=== PATIENT | male | born 1950 | race Caucasian/White ===

== ENCOUNTER 2020-03-28 10:17 | Inpatient (IN) | payer MEDICARE, MEDICAID ==
[~2020-03-28] VITALS: Ht 182.9 cm; Wt 85.5 kg
[2020-03-28] MEDS ORDERED: ONDANSETRON HCL 4 MG/2 ML VIAL IV ONE (10:30)
[2020-03-28] MEDS ORDERED: ASPirin 81 mg TAB PO ONE (10:30)
[2020-03-28] MEDS ORDERED: MORPHINE SULF INJ 2 MG/ML SYRINGE 1ML IV ONE (10:30)
[2020-03-28 11:23] LABS: Basophils # (auto) 0 10 ^3/uL (0-0.2); Basophils % (auto) 0.5 % (0.0-2.0); Eosinophils # (auto) 0.1 10 ^3/uL (0-0.8); Eosinophils % (auto) 2.1 % (0.0-7.0); Hematocrit 37.2 % (41.0-53.0); Hemoglobin 12.7 g/dL (13.5-17.5); Lymphocytes % (auto) 17.5 % (10.0-50.0); Mean Corpuscular Hemoglobin 28.3 pg (28.0-32.0); Mean Corpuscular Hgb Conc. 34.1 g/dL (32.0-36.0); Mean Corpuscular Volume 83.1 fL (80.0-100.0); Monocytes # (auto) 0.3 10 ^3/uL (0-1.3); Monocytes % (auto) 5.7 % (0.0-12.0); Neutrophils # (auto) 4.4 10 ^3/uL (1.6-8.6); Neutrophils % (auto) 74.2 % (37.0-80.0); Platelet Count (auto) 183 10^3/uL (140-450); Red Blood Cells 4.48 10^6/uL (4.5-5.90); Red Cell Distribution Width 15.5 % (11.8-14.3); White Blood Cell 5.9 10^3/uL (4.4-10.8)
[2020-03-28 11:46] LABS: Albumin 3.5 g/dL (3.4-5.0); Anion Gap 7 (5-15); BUN/Creatinine Ratio 18.8; Blood Urea Nitrogen 12 mg/dL (7-18); Calcium 8.8 mg/dL (8.5-10.1); Carbon Dioxide 28 mmol/L (21-32); Chloride 101 mmol/L (98-107); GFR African American 160 mL/min; GFR Non-African American 133 mL/min; Glucose 214 mg/dL (74-106); Magnesium 2.5 mg/dL (1.6-2.6); Sodium 136 mmol/L (136-145)
[2020-03-28 11:47] LABS: INR 1.03 (0.9-1.15); Partial Thromboplastin Time 29.6 sec (23.64-32.05)
[2020-03-28 11:51] LABS: Alanine Aminotransferase 24 U/L (16-61); Alkaline Phosphatase 120 U/L (45-117); Aspartate Aminotransferase 18 U/L (15-37); Bilirubin, Total 1.2 mg/dL (0.2-1.0); Total Protein 8.1 g/dL (6.4-8.2)
[2020-03-28] MEDS ORDERED: DEXTROSE (50%) 50ML SYRG IV PRN (14:00)
[2020-03-28] MEDS ORDERED: ONDANSETRON HCL 4 MG/2 ML VIAL IV PRN (14:00)
[2020-03-28] MEDS ORDERED: HYDROcodone-ACET 5/325MG TAB PO PRN (14:00)
[2020-03-28] MEDS ORDERED: hydrALAZINE HCL 20 MG/ML VL IV PRN (14:00)
[2020-03-28] MEDS ORDERED: NICOTINE 21MG/24 HR TOPICAL PATCH TD ONE (14:00)
[2020-03-28] MEDS ORDERED: NITROGLYCERIN 0.4 MG SL TAB SL PRN (14:00)
[2020-03-28] MEDS ORDERED: ACETAMINOPHEN 500 MG TAB PO PRN (14:00)
[2020-03-28] MEDS ORDERED: LISINOPRIL 10 MG TAB PO ONE (14:15)
[2020-03-28] MEDS ORDERED: CLOPIDOGREL BISULFATE 75 MG TAB PO ONE (16:30)
[2020-03-28] MEDS ORDERED: RANOLAZINE ER 500 MG TAB PO ONE (16:30)
[2020-03-28] MEDS: MORPHINE SULF INJ 2 MG/ML SYRINGE 1ML IV PRN ×2 (16:30→21:20)
[2020-03-28] MEDS: ACCU-CHEK COMFORT CURVE STRIP VI SCH ×2 (17:06→22:47)
[2020-03-28] MEDS: InsuLIN REG 1unit/0.01ml Soln (100units/ml) SC SCH ×2 (17:10→22:47)
--- NOTE | 2020-03-28 18:13 | NUR ---
Pt Arrived on Unit Pt arrived on unit from ED. Pt is a/ox4 with no s/s of distress or SOB. Pt was able to ambulate to bed with standby assistance. Safety measures initiated with call light within reach, bed in lowest position and side rails up. Will continue to monitor.
[2020-03-28 18:40] VITALS: BP 146/74
[2020-03-28] MEDS ORDERED: FURO1TAB33 PO (18:45)
[2020-03-28] MEDS ORDERED: ATOR40TA52 PO (18:45)
[2020-03-28] MEDS ORDERED: AMLO5TAB15 PO (18:45)
[2020-03-28] MEDS ORDERED: CLOP75TA41 PO (18:45)
--- NOTE | 2020-03-28 19:20 | NUR ---
Opening Shift Note Assumed care of patient, awake and alert. No S/S of distress/SOB or pain. Bed is locked to lowest position with call light within reach. Instructed on POC and to call for assist PRN, will continue to monitor for changes Q1hr and PRN.
[2020-03-28 21:00] VITALS: BP 134/61
--- NOTE | 2020-03-28 21:20 | NUR ---
PAIN ASSESSMENT The patient reports consistent 8/10 chest pain and requested pain medication. Will treat with PRN Morphine and will reevaluate the patient's pain.
--- NOTE | 2020-03-28 22:45 | NUR ---
PAIN REASSESSMENT The patient reports having 0/10 chest pain and is resting comfortably in bed. Will continue to monitor the patient's pain.
[2020-03-28] MEDS: RANOLAZINE ER 500 MG TAB PO SCH (22:47)
[2020-03-28] MEDS: ATORVASTATIN 20 MG TAB PO SCH (22:47)
[2020-03-28] MEDS: CARVEDILOL 3.125 MG TAB PO SCH (22:47)
[2020-03-29 04:30] VITALS: BP 121/59
--- NOTE | 2020-03-29 05:49 | NUR ---
MEDICAL RECORDS REQUEST HAS BEEN FAXED TO [facility].
[2020-03-29] MEDS: InsuLIN REG 1unit/0.01ml Soln (100units/ml) SC SCH ×4 (06:01→22:00)
[2020-03-29 06:04] LABS: Basophils # (auto) 0 10 ^3/uL (0-0.2); Basophils % (auto) 0.5 % (0.0-2.0); Eosinophils # (auto) 0.2 10 ^3/uL (0-0.8); Eosinophils % (auto) 3.3 % (0.0-7.0); Hematocrit 33.2 % (41.0-53.0); Hemoglobin 11.4 g/dL (13.5-17.5); Lymphocytes # (auto) 1.2 10 ^3/uL (0.4-5.4); Lymphocytes % (auto) 24.1 % (10.0-50.0); Mean Corpuscular Hemoglobin 28.8 pg (28.0-32.0); Mean Corpuscular Hgb Conc. 34.5 g/dL (32.0-36.0); Mean Corpuscular Volume 83.6 fL (80.0-100.0); Monocytes # (auto) 0.4 10 ^3/uL (0-1.3); Monocytes % (auto) 8.8 % (0.0-12.0); Neutrophils # (auto) 3.1 10 ^3/uL (1.6-8.6); Neutrophils % (auto) 63.3 % (37.0-80.0); Platelet Count (auto) 160 10^3/uL (140-450); Red Blood Cells 3.97 10^6/uL (4.5-5.90); Red Cell Distribution Width 15.1 % (11.8-14.3); White Blood Cell 4.8 10^3/uL (4.4-10.8)
[2020-03-29 06:13] LABS: INR 1.07 (0.9-1.15); Partial Thromboplastin Time 28.9 sec (23.64-32.05)
[2020-03-29 06:23] LABS: Potassium 3.6 mmol/L (3.5-5.1)
[2020-03-29 06:31] LABS: BUN/Creatinine Ratio 28.8; Calcium 8.5 mg/dL (8.5-10.1)
[2020-03-29] MEDS: ACCU-CHEK COMFORT CURVE STRIP VI SCH ×4 (06:31→22:00)
--- NOTE | 2020-03-29 07:26 | NUR ---
Opening Shift Note Assumed care of patient, awake and alert. No S/S of distress/SOB. Patient verbalizes generalized pain and describes it as chronic and 05/23, patient is requesting PRN medication. Will administer as per order. Bed is locked to lowest position with call light within reach. Instructed on POC and to call for assist PRN, will continue to monitor for changes Q1hr and PRN.
[2020-03-29] MEDS: MORPHINE SULF INJ 2 MG/ML SYRINGE 1ML IV PRN ×4 (08:20→20:56)
[2020-03-29] MEDS: NICOTINE 21MG/24 HR TOPICAL PATCH TD SCH (08:58)
[2020-03-29] MEDS: CARVEDILOL 3.125 MG TAB PO SCH ×2 (08:59→22:00)
[2020-03-29] MEDS: LISINOPRIL 10 MG TAB PO SCH (08:59)
[2020-03-29] MEDS: FUROSEMIDE 20 MG TAB PO SCH (09:00)
[2020-03-29] MEDS: CLOPIDOGREL BISULFATE 75 MG TAB PO SCH (09:00)
[2020-03-29] MEDS: RANOLAZINE ER 500 MG TAB PO SCH ×2 (09:00→22:00)
[2020-03-29] MEDS: ASPirin-EC 81 mg tab PO SCH (09:01)
[2020-03-29] MEDS: FAMOTIDINE 20 MG TAB PO SCH (09:04)
[2020-03-29 09:11] VITALS: BP 136/70
[2020-03-29] MEDS ORDERED: NITROGLYCERIN 0.4MG/HR TOPICAL PATCH TD SCH (10:00)
[2020-03-29 12:54] VITALS: BP 144/71
[2020-03-29] MEDS ORDERED: ALBUTEROL SULF 2.5 MG/0.5ML(0.5%) NEB SOLN NEB PRN (14:00)
[2020-03-29] MEDS ORDERED: IPRATROPIUM BROM 0.5 MG/2.5ML INH SOL NEB PRN (14:00)
--- NOTE | 2020-03-29 15:19 | NUR ---
MD Auguste paged to notify of MRSA SWAB results. Will await call back.
--- NOTE | 2020-03-29 16:46 | NUR ---
ss consult Per ss consult patient needs PCP. Per Kadi Whitehead patients PCP is Dr Aceves. Addendum: 03/29/20 at 1646 by Kadi LI Amended: Links added.
--- NOTE | 2020-03-29 17:10 | NUR ---
re MRSA results No call back from MD Auguste. Paged communications coordinator hospitalist to relay results. awaiting call back.
--- NOTE | 2020-03-29 17:11 | NUR ---
Call back from customer operations intern Hospitalist Ashu Landaverde, microbiology results read (re.mrsa) to JIGMAKER. No new orders received. Will continue to monitor.
[2020-03-29 17:20] LABS: Amphetamine Screen, Urine NEGATIVE (NEGATIVE); Barbiturate Scree,Urine NEGATIVE (NEGATIVE); Benzodiazephine Screen, Urine POSITIVE (NEGATIVE); Cocaine Screen, Urine NEGATIVE (NEGATIVE); Opiate Scree,Urine POSITIVE (NEGATIVE); Phencyclidine Screen, Urine NEGATIVE (NEGATIVE)
[2020-03-29 17:28] LABS: Cannabinoid Screen, Urine NEGATIVE (NEGATIVE)
[2020-03-29 17:31] LABS: Alcohol, Urine < 3.0 mg/dL (0-10)
--- NOTE | 2020-03-29 17:54 | NUR ---
RE MEDICAL RECORDS REQUEST FOR MEDICAL RECORDS RE FAXED TO [phone] TO [facility]
--- NOTE | 2020-03-29 19:03 | NUR ---
Respiratory note: PT SEEN AND ASSESSED FOR PRN MED NEB TX AT 1903. TX IS NOT INDICATED AT THIS TIME. PT DENIES HAVING ANY RESPIRATORY DISTRESS. HR 67 RR 18 SP02 94% ON ROOM AIR.
--- NOTE | 2020-03-29 20:15 | NUR ---
CALLED [facility] FOR AN UPDATE ON THE STATUS OF THE PATIENT'S MEDICAL RECORDS BUT UNABLE TO CONTACT ANYONE. MEDICAL RECORDS DEPARTMENT IS CLOSED AT THIS TIME. MEDICAL RECORDS DEPARTMENT IS OPENED FROM 0800 TO 1630. Addendum: 03/30/20 at 0707 by Dani Calix RN [facility] PHONE # [phone] FAX# [phone]
[2020-03-29 20:35] VITALS: BP 144/71
[2020-03-29 22:00] VITALS: BP 138/78
[2020-03-29] MEDS: ATORVASTATIN 20 MG TAB PO SCH (22:00)
[2020-03-30] MEDS: MORPHINE SULF INJ 2 MG/ML SYRINGE 1ML IV PRN ×3 (01:38→08:51)
--- NOTE | 2020-03-30 04:25 | NUR ---
ASSESSMENT The patient reports feeling weak while ambulating to the restroom. He states that this is unusual. He also reports chest pain which he rates as a 7/10. Vitals were stable: BP 141/82, HR 65, SPO2 94%, RR 18, Temp 98.9. An EKG was also obtained. Will notify the hospitalist.
[2020-03-30 05:00] VITALS: BP 148/79
--- NOTE | 2020-03-30 05:30 | NUR ---
HOSPITALIST NOTIFIED KOURTNEY Cruz has been notified about the patient's symptoms and evaluated the EKG. No new orders obtained. Will continue to monitor the patient's status.
[2020-03-30] MEDS: InsuLIN REG 1unit/0.01ml Soln (100units/ml) SC SCH ×4 (06:36→21:47)
[2020-03-30] MEDS: ACCU-CHEK COMFORT CURVE STRIP VI SCH ×4 (06:37→21:28)
[2020-03-30 07:44] LABS: Basophils # (auto) 0 10 ^3/uL (0-0.2); Basophils % (auto) 0.4 % (0.0-2.0); Eosinophils # (auto) 0.2 10 ^3/uL (0-0.8); Eosinophils % (auto) 3.7 % (0.0-7.0); Hematocrit 33.4 % (41.0-53.0); Hemoglobin 11.4 g/dL (13.5-17.5); Lymphocytes # (auto) 1.4 10 ^3/uL (0.4-5.4); Lymphocytes % (auto) 27.7 % (10.0-50.0); Mean Corpuscular Hemoglobin 28.6 pg (28.0-32.0); Mean Corpuscular Hgb Conc. 34.1 g/dL (32.0-36.0); Mean Corpuscular Volume 83.9 fL (80.0-100.0); Monocytes # (auto) 0.5 10 ^3/uL (0-1.3); Monocytes % (auto) 9.2 % (0.0-12.0); Nucleated Red Blood Cells % 0.1 %; Platelet Count (auto) 163 10^3/uL (140-450); Red Blood Cells 3.97 10^6/uL (4.5-5.90); Red Cell Distribution Width 15.7 % (11.8-14.3); White Blood Cell 5.1 10^3/uL (4.4-10.8)
[2020-03-30 07:53] LABS: Albumin 3.2 g/dL (3.4-5.0); Calcium 8.7 mg/dL (8.5-10.1); Magnesium 2.2 mg/dL (1.6-2.6); Potassium 3.8 mmol/L (3.5-5.1)
[2020-03-30 07:58] LABS: BUN/Creatinine Ratio 21.6; Bilirubin, Total 0.8 mg/dL (0.2-1.0); Total Protein 7.1 g/dL (6.4-8.2)
[2020-03-30] MEDS: NICOTINE 21MG/24 HR TOPICAL PATCH TD SCH (08:50)
[2020-03-30] MEDS: RANOLAZINE ER 500 MG TAB PO SCH ×2 (08:51→21:28)
[2020-03-30] MEDS: LISINOPRIL 10 MG TAB PO SCH (08:51)
[2020-03-30] MEDS: POTASSIUM CHL 10 Meq TABLET PO SCH (08:52)
[2020-03-30] MEDS: ASPirin-EC 81 mg tab PO SCH (08:52)
[2020-03-30] MEDS: CLOPIDOGREL BISULFATE 75 MG TAB PO SCH (08:52)
[2020-03-30] MEDS: FUROSEMIDE 20 MG TAB PO SCH (08:53)
[2020-03-30] MEDS: CARVEDILOL 3.125 MG TAB PO SCH ×2 (08:53→21:28)
[2020-03-30] MEDS: FAMOTIDINE 20 MG TAB PO SCH (08:54)
[2020-03-30 09:00] VITALS: BP 157/89
--- NOTE | 2020-03-30 10:16 | NUR ---
CALLED [facility]/ PHONE # [phone], FOR AN UPDATE ON THE STATUS OF THE PATIENT'S MEDICAL RECORDS BUT UNABLE TO CONTACT ANYONE. DETAILED VOICEMAIL LEFT ON MEDICAL RECORDS DEPARTMENT. REQUEST RE FAXED TO FAX# [phone]
--- NOTE | 2020-03-30 10:24 | NUR ---
MD Auguste at bed side. New orders received, read back and verified. Will implement.
[2020-03-30] MEDS: KETOROLAC TROMETH 30 MG/ML 1ML VIAL IV PRN ×2 (12:11→21:27)
--- NOTE | 2020-03-30 12:40 | NUR ---
Received call from MD Auguste to keep patient NPO status for probable central lab technician intervention later today. Will carry out.
[2020-03-30 12:41] VITALS: BP 157/86
[2020-03-30] MEDS ORDERED: LEVOTHYROXINE SODIUM 25 MCG TAB PO ONE (12:45)
--- NOTE | 2020-03-30 13:00 | NUR ---
MD Pozo at bed side discussing POC with patient. Patient verbalizes understanding.
[2020-03-30 13:30] LABS: Urine WBC None Seen /hpf (0 - 3)
[2020-03-30 13:50] LABS: Urine Bacteria NONE SEEN /hpf (None Seen); Urine Blood Negative /uL (Negative); Urine Mucus FEW (None Seen)
--- NOTE | 2020-03-30 14:31 | NUR ---
RT NOTE: PRN BREATHING TX. NOT INDICATED AT THIS TIME. NO S/S OF RESPIRATORY DISTRESS NOTED. PT. DENIES ANY SOB. PT. HR 57, RR 16, POX 97% R/A. PT. AWARE TO NOTIFY RN IF BREATHING TX. IS NEEDED.
--- NOTE | 2020-03-30 15:00 | NUR ---
Received call from microbiology laboratory manager to bring patient down for [facility]. Noreen CAMPOS made aware of recent NPO status (12:40/03/30). Per Noreen, "that is ok, continue to bring patient down."
--- NOTE | 2020-03-30 15:15 | NUR ---
Patient off unit to geophysical laboratory director for LHC with MD Pozo, patient received by ANDRES SOTELO, full patient status/report given, including infor on patient ate full breakfast portion and 50% lunch. Micheline verbalizes understanding. Patient awake and alert with with no s/s of pain or distress.
[2020-03-30] MEDS ORDERED: MIDAZOLAM HCL 1MG/1ML-2 ML VIAL IV ONE (16:15)
[2020-03-30] MEDS ORDERED: fentaNYL CITRATE 100 MCG/2 ML VL IV ONE (16:15)
--- NOTE | 2020-03-30 16:28 | NUR ---
c/o pain patient states chest pain of 9/10. obtained verbal order from Dr Pozo for meds. see Emar.
--- NOTE | 2020-03-30 17:31 | NUR ---
pain assessment pt states his chest pain is still at 8 1/2 out of 10 Meds administered as ordered.
--- NOTE | 2020-03-30 17:36 | NUR ---
procedure moved to 03/31/[address] Pozo, procedure postponed for tomorrow at noon. patient notified. pt verbalized understanding. Addendum: 03/30/20 at 1757 by Seema Gallagher RN endorsed to primary RN.
--- NOTE | 2020-03-30 17:37 | NUR ---
Call from laboratory development technician, edward Tobias RN, unable to do procedure today d/t duration of cases ahead of patient. Per RN, patient ok to have light breakfast and AM meds and be NPO after.
--- NOTE | 2020-03-30 17:55 | NUR ---
Patient back in room from manager labor delivery. VS wnl. no s/s pain or distress. Patient states being hungry. Will call dietary for new diet order.
[2020-03-30 18:14] VITALS: BP 139/70
--- NOTE | 2020-03-30 18:21 | NUR ---
Patient c/o insomnia X2 nights. On-call hospitalist paged and new order for sleep aid obtained. Refer to eMAR/Order HX.
[2020-03-30] MEDS ORDERED: TEMAZEPAM 15 MG CAP PO PRN (18:30)
--- NOTE | 2020-03-30 19:14 | NUR ---
Respiratory note: ASSESSED PT FOR PRN BREATHING TX. NOT INDICATED AT THIS TIME. NO S/S OF RESPIRATORY DISTRESS NOTED. PT. DENIES ANY SOB. PT. HR 60, RR 16, POX 95% R/A. PT. AWARE TO NOTIFY RN IF BREATHING TX IS NEEDED.
[2020-03-30] MEDS: ATORVASTATIN 20 MG TAB PO SCH (21:26)
[2020-03-30] MEDS: MUPIROCIN 2% OINT 15gm or 22gm EACHNOSTRI SCH (21:48)
[2020-03-30 22:00] VITALS: BP 156/90
[2020-03-31] MEDS: KETOROLAC TROMETH 30 MG/ML 1ML VIAL IV PRN (04:00)
--- NOTE | 2020-03-31 04:00 | NUR ---
PAIN PT C/O 8/10 CHEST AND BACK PAIN REQUESTING PAIN MEDICATION. ADMINISTERED TORADOL IV PRESCRIBED PATIENT TOLERATED WELL.
[2020-03-31 05:00] VITALS: BP 145/75
[2020-03-31] MEDS: ACCU-CHEK COMFORT CURVE STRIP VI SCH ×4 (06:00→21:15)
[2020-03-31] MEDS: LEVOTHYROXINE SODIUM 25 MCG TAB PO SCH (06:14)
[2020-03-31] MEDS: InsuLIN REG 1unit/0.01ml Soln (100units/ml) SC SCH ×4 (06:16→22:03)
[2020-03-31 06:32] LABS: Potassium 3.4 mmol/L (3.5-5.1)
[2020-03-31 07:16] LABS: BUN/Creatinine Ratio 26.2; Calcium 8.2 mg/dL (8.5-10.1)
[2020-03-31 09:00] VITALS: BP 151/83
--- NOTE | 2020-03-31 09:08 | NUR ---
I faxed life vest order to [facility].
[2020-03-31] MEDS: ASPirin-EC 81 mg tab PO SCH (10:00)
[2020-03-31] MEDS: MUPIROCIN 2% OINT 15gm or 22gm EACHNOSTRI SCH ×2 (10:00→22:00)
[2020-03-31] MEDS: NICOTINE 21MG/24 HR TOPICAL PATCH TD SCH (10:00)
[2020-03-31] MEDS: RANOLAZINE ER 500 MG TAB PO SCH ×2 (10:00→22:01)
[2020-03-31] MEDS: CLOPIDOGREL BISULFATE 75 MG TAB PO SCH (10:00)
[2020-03-31] MEDS: FAMOTIDINE 20 MG TAB PO SCH (10:00)
--- NOTE | 2020-03-31 10:20 | NUR ---
PATIENT OFF UNIT.
[2020-03-31] MEDS ORDERED: LIDOCAINE 2%HCL (LOCAL ANESTH.) INJ 20ML MDV ONE (10:43)
[2020-03-31] MEDS ORDERED: IODIXANOL 320MG/ML 100ML BTL IV ONE (10:43)
[2020-03-31] MEDS ORDERED: HEPARIN SODIUM (PORCINE) 5000 UNITS/ML 1ML VIAL ONE (10:49)
[2020-03-31] MEDS ORDERED: ANGIOMAX 250 MG VIAL IV ONE (10:49)
[2020-03-31] MEDS ORDERED: VERAPAMIL 2.5MG/ML INJ 2ML VIAL IV ONE (10:50)
[2020-03-31] MEDS ORDERED: fentaNYL CITRATE 100 MCG/2 ML VL ONE (10:50)
[2020-03-31] MEDS ORDERED: SODIUM CHL 0.9% 0 ML ONE (10:50)
[2020-03-31] MEDS ORDERED: MIDAZOLAM HCL 1MG/1ML-2 ML VIAL ONE ×2 (10:50→11:26)
[2020-03-31] MEDS ORDERED: NITROGLYCERIN 50MG/250ML 250 ML IV ONE (10:58)
[2020-03-31] MEDS ORDERED: diphenhdrAMINE HCL 50 MG/1 ML VL ONE (11:15)
[2020-03-31] MEDS ORDERED: hydrALAZINE HCL 20 MG/ML VL ONE (11:19)
--- NOTE | 2020-03-31 12:51 | NUR ---
PATIENT ARRIVED BACK ON UNIT. NO S/S OF DISTRESS NOTED AT THIS TIME. PATIENT DROWSY, BUT AROUSABLE TO NAME. RIGHT VASBAND INFLATED AND NO S/S OF BLEEDING NOTED AT THIS TIME. RADIAL PULSES BILATERAL PRESENT AND STRONG. WILL BEGIN TO DEFLATE ORDERED.
--- NOTE | 2020-03-31 13:00 | NUR ---
2MLS OF AIR REMOVED FROM RIGHT VASCBAND. NO BLEEDING NOTED WILL CONTINUE TO MONITOR.
[2020-03-31] MEDS: CARVEDILOL 3.125 MG TAB PO SCH (13:02)
[2020-03-31] MEDS: FUROSEMIDE 20 MG TAB PO SCH (13:03)
[2020-03-31] MEDS: POTASSIUM CHL 10 Meq TABLET PO SCH (13:03)
[2020-03-31] MEDS: LISINOPRIL 10 MG TAB PO SCH (13:03)
--- NOTE | 2020-03-31 13:15 | NUR ---
2MLS OF AIR REMOVED FROM VASC BAND. NO S/S OF BLEEDING NOTED. WILL CONTINUE TO MONITOR.
--- NOTE | 2020-03-31 13:30 | NUR ---
2MLS OF AIR REMOVED FROM VASC BAND. NO S/S OF BLEEDING NOTED AT THIS TIME. WILL CONTINUE TO MONITOR.
--- NOTE | 2020-03-31 13:50 | NUR ---
VASC BAND REMOVED. NO S/S OF BLEEDING NOTED.
[2020-03-31] MEDS ORDERED: ASPI81CH43 PO (14:34)
[2020-03-31] MEDS ORDERED: ALBUAER3 IN (14:34)
[2020-03-31] MEDS ORDERED: FUR20T PO (14:34)
[2020-03-31] MEDS ORDERED: ESCI10TA53 PO (14:34)
[2020-03-31] MEDS ORDERED: CARV12.544 PO (14:34)
[2020-03-31] MEDS ORDERED: POTASSIUM CHL 20 Meq TABLET PO ONE (15:00)
--- NOTE | 2020-03-31 15:00 | NUR ---
DRESSING TO RIGHT WRIST CLEAN DRY AND INTACT.
--- NOTE | 2020-03-31 16:12 | NUR ---
ASSESSED PT FOR PRN MED NEB TX, PT ON RA WITH SPO2 98%, HR 53, RR 16 WITH CLEAR BS. NO DISTRESS NOTED. NO INDICATION FOR PRN MED AT THIS TIME.
[2020-03-31 16:59] VITALS: BP 159/89
--- NOTE | 2020-03-31 18:00 | NUR ---
ASSESSED SITE TO RIGHT ARM FOR BLEEDING. NO S/S OF BLEEDING NOTED. TEGADERM AND GAUZE INTACT AND DRY.
--- NOTE | 2020-03-31 19:20 | NUR ---
Respiratory note: PT ASSESSED FOR PRN MED NEB TX. PT'S HR 70, RR 16, SPO2 99% ON RA. NO S/S OF ANY RESPIRATORY DISTRESS NOTED. ADVISED PT TO CALL IF TX IS NEEDED. RT NAME AND PAGER NUMBER WRITTEN ON PT'S BOARD.
[2020-03-31] MEDS ORDERED: ZOLP10TA PO (20:09)
--- NOTE | 2020-03-31 20:10 | NUR ---
INSOMNIA PATIENT STATES RESTORIL THAT WAS TAKEN LAST NIGHT DID NOT HELP HIS INSOMNIA. PATIENT STATES HE REGULARLY TAKE AMBIEN 10MG PO QHS PRN FOR INSOMNIA AT HOME AND REQUESTING TO TAKE IT WHILE HERE IN THE HOSPITAL, MEDICATION RECONCILIATION UPDATED. PAGED HOSPITALIST FOR ORDERS.
[2020-03-31] MEDS ORDERED: ZOLPIDEM TARTRATE 5 MG TAB PO ONE (20:45)
[2020-03-31 22:00] VITALS: BP 160/88
[2020-03-31] MEDS: CARVEDILOL 12.5 MG TAB PO SCH (22:01)
[2020-03-31] MEDS: ATORVASTATIN 20 MG TAB PO SCH (22:02)
[2020-04-01] MEDS: MORPHINE SULF INJ 2 MG/ML SYRINGE 1ML IV PRN ×3 (01:03→22:37)
[2020-04-01 05:00] VITALS: BP 143/72
[2020-04-01 05:28] LABS: Basophils # (auto) 0 10 ^3/uL (0-0.2); Basophils % (auto) 0.3 % (0.0-2.0); Eosinophils # (auto) 0.2 10 ^3/uL (0-0.8); Eosinophils % (auto) 2.9 % (0.0-7.0); Hemoglobin 12.5 g/dL (13.5-17.5); Lymphocytes # (auto) 1.6 10 ^3/uL (0.4-5.4); Lymphocytes % (auto) 25.1 % (10.0-50.0); Mean Corpuscular Hgb Conc. 34.9 g/dL (32.0-36.0); Mean Corpuscular Volume 83.3 fL (80.0-100.0); Monocytes # (auto) 0.5 10 ^3/uL (0-1.3); Neutrophils # (auto) 3.9 10 ^3/uL (1.6-8.6); Neutrophils % (auto) 63.7 % (37.0-80.0); Platelet Count (auto) 184 10^3/uL (140-450); Red Blood Cells 4.32 10^6/uL (4.5-5.90); Red Cell Distribution Width 15.9 % (11.8-14.3); White Blood Cell 6.2 10^3/uL (4.4-10.8)
[2020-04-01 05:38] LABS: Potassium 3.5 mmol/L (3.5-5.1)
[2020-04-01 05:49] LABS: BUN/Creatinine Ratio 25.8; Calcium 8.4 mg/dL (8.5-10.1)
[2020-04-01] MEDS: LEVOTHYROXINE SODIUM 25 MCG TAB PO SCH (05:54)
[2020-04-01] MEDS: ACCU-CHEK COMFORT CURVE STRIP VI SCH ×4 (05:57→22:28)
[2020-04-01] MEDS: InsuLIN REG 1unit/0.01ml Soln (100units/ml) SC SCH ×4 (05:59→22:00)
[2020-04-01 09:00] VITALS: BP 133/74
--- NOTE | 2020-04-01 09:23 | NUR ---
PT ASSESSED FOR PRN HHN TX. PT IS ON ROOM AIR, SPO2 98%, HR 71, RR 20. NO S/S OF RESPIRATORY DISTRESS. PT AWARE TO HAVE RT PAGED IF TX INDICATED. WILL CONTINUE TO MONITOR.
[2020-04-01] MEDS: RANOLAZINE ER 500 MG TAB PO SCH ×2 (09:57→22:37)
[2020-04-01] MEDS: FUROSEMIDE 20 MG TAB PO SCH (09:58)
[2020-04-01] MEDS: FAMOTIDINE 20 MG TAB PO SCH (09:58)
[2020-04-01] MEDS: POTASSIUM CHL 10 Meq TABLET PO SCH (09:59)
[2020-04-01] MEDS: CLOPIDOGREL BISULFATE 75 MG TAB PO SCH (09:59)
[2020-04-01] MEDS: ASPirin-EC 81 mg tab PO SCH (10:00)
[2020-04-01] MEDS: NICOTINE 21MG/24 HR TOPICAL PATCH TD SCH (10:00)
[2020-04-01] MEDS: CARVEDILOL 12.5 MG TAB PO SCH ×2 (10:01→22:37)
[2020-04-01] MEDS: MUPIROCIN 2% OINT 15gm or 22gm EACHNOSTRI SCH ×2 (10:02→22:00)
[2020-04-01] MEDS: LISINOPRIL 10 MG TAB PO SCH (10:02)
--- NOTE | 2020-04-01 10:07 | NUR ---
DOCTOR AT BEDSIDE DISCUSSING POC.
[2020-04-01] MEDS ORDERED: POTASSIUM CHL 20 Meq TABLET PO ONE (11:00)
[2020-04-01] MEDS ORDERED: POTA1TAB61 PO (11:03)
[2020-04-01] MEDS ORDERED: LISI-646 PO (11:03)
[2020-04-01] MEDS ORDERED: NIC21P TOP (11:03)
[2020-04-01] MEDS ORDERED: FAM20T PO (11:03)
[2020-04-01] MEDS ORDERED: LEV25T PO (11:03)
--- NOTE | 2020-04-01 12:54 | NUR ---
assessment Patient is a 69 year old male who is alert and oriented. Prior to admission patient lived home with family and was independent. patient has a fww for home use. Kadi Whitehead to see patient for PCP prior to his discharge. Patient has no safety concerns regarding returning home on discharge. I informed patient he has a ss consult for [facility] for safety, PT, medication management, and vitals. Patient has been read a list of medicare providers. Patient has no preference. MD order has been sent to [facility]. Per Adriel service will start within 48 hours of discharge. Patient verbalized understanding and agreed to discharge plan home. Addendum: 04/01/20 at 1300 by Kadi LI Amended: Links added.
[2020-04-01 13:00] VITALS: BP 145/77
--- NOTE | 2020-04-01 13:00 | NUR ---
per patient he [place] friends current address [address] [place] patients phone number [phone]
[2020-04-01 17:00] VITALS: BP 135/85
--- NOTE | 2020-04-01 17:30 | NUR ---
Received phone call from jaky shrest[employer] solar sales representative per rep the tech is running late and is in heavy traffic and will be here around [id number]. Rep Valerie restrepo [phone]
--- NOTE | 2020-04-01 18:39 | NUR ---
Discharge instructions given as ordered. Encourage to follow up with PMD as instructed. All questions and concerns addressed. Patient verbalized understanding. Medication reconciliation form completed and copy given to patient. Home medications held in Pharmacy returned to patient, and no needed vaccines given. Patient resting in bed waiting waiting for zoll vest. IV and tele monitor to be removed by NOC RN after patient receives Zoll vest.
--- NOTE | 2020-04-01 18:53 | NUR ---
RECEIVED PHONE CALL FROM [employer] DESK SERGEANT DREA SHEPARD SHE WAS CALLED TO A CRITICAL CONSULT AND HAD TO USE THE ZOLL VEST FOR ANOTHER PATIENT. DREA ALSO STATED THAT THE COMPANY WAS WORKING ON SENDING ANOTHER REP TONIGHT WITH ANOTHER ZOLL VEST. JENNIFER SHEPARD CURRENT ETA IS UNKNOWN.WILL INFORM PATIENT AND NOC RN.
--- NOTE | 2020-04-01 19:45 | NUR ---
[employer] SPOKE WITH MILLICENT SHEEHAN FROM [employer] STATES HE HAS CALLED CORPORATE TO ASSIGN SOMEONE TO DELIVER ZOLL VEST BUT HAS NO HEARD FROM THEM. ZOLL VEST MAY BE DELIVERED TOMORROW INSTEAD. INFORMED HIM PATIENT NEEDS ZOLL VEST PRIOR TO BEING DISCHARGED. Addendum: 04/01/20 at 2128 by KHADIJAH ABBOTT RN RN MILLICENT SHEEHAN FROM [employer] CALLED BACK AND STATES ZOLL VEST WILL NOT BY DELIVERED TO BUT MOSTLY LIKE DELIVERED TOMORROW MORNING' Addendum: 04/01/20 at 2241 by KHADIJAH ABBOTT RN RN DREA FROM [employer] JUST CALLED AND STATES SHE WILL BE HERE AROUND 0800 TOMORROW MORNING TO BRING PATIENT ZOLL VEST.
[2020-04-01] MEDS: ATORVASTATIN 20 MG TAB PO SCH (22:00)
[2020-04-01 22:02] VITALS: BP 149/96
[2020-04-01] MEDS ORDERED: ZOLPIDEM TARTRATE 5 MG TAB PO PRN (22:45)
[2020-04-02 05:06] VITALS: BP 154/70
[2020-04-02] MEDS: LEVOTHYROXINE SODIUM 25 MCG TAB PO SCH (06:10)
[2020-04-02] MEDS: InsuLIN REG 1unit/0.01ml Soln (100units/ml) SC SCH ×2 (06:13→11:30)
[2020-04-02] MEDS: ACCU-CHEK COMFORT CURVE STRIP VI SCH ×2 (06:14→11:30)
[2020-04-02] MEDS: ASPirin-EC 81 mg tab PO SCH (09:01)
[2020-04-02] MEDS: FAMOTIDINE 20 MG TAB PO SCH (09:02)
[2020-04-02] MEDS: POTASSIUM CHL 10 Meq TABLET PO SCH (09:02)
[2020-04-02] MEDS: CLOPIDOGREL BISULFATE 75 MG TAB PO SCH (09:02)
[2020-04-02] MEDS: FUROSEMIDE 20 MG TAB PO SCH (09:03)
[2020-04-02] MEDS: RANOLAZINE ER 500 MG TAB PO SCH (09:03)
[2020-04-02] MEDS: LISINOPRIL 10 MG TAB PO SCH (09:03)
[2020-04-02] MEDS: CARVEDILOL 12.5 MG TAB PO SCH (09:04)
[2020-04-02] MEDS: NICOTINE 21MG/24 HR TOPICAL PATCH TD SCH (09:04)
[2020-04-02] MEDS: MUPIROCIN 2% OINT 15gm or 22gm EACHNOSTRI SCH (09:04)
[2020-04-02 09:19] VITALS: BP 143/85
--- NOTE | 2020-04-02 09:49 | NUR ---
[employer] REFUSE ZOLL VEST CORPORATE COMPLIANCE DIRECTOR DREA AT BEDSIDE EXPLAINING INSTRUCTIONS AND HOW TO USE ZOLL VEST. PATIENT STATED" ITS TOO COMPLICATED, I DONT WANT TO CHANGE THE BATTERY TAKE IT BACK I WONT USE IT" PATIENT WAS EDUCATED ON IMPORTANCE AND RISK OF THE ZOLL VEST PATIENT STATED "I AM RIGHT WITH GOD SO I DONT NEED IT". PATIENT ALSO STATED"I WANT TO GO HOME NOW AND WITH OUT THAT VEST" DOCTOR JOSE DAVID WAS NOTIFIED OF PATIENT REFUSING ZOLL VEST AND WANTING TO GO HOME. PER DOCTOR MAIN PATIENT IS OKAY TO GO HOME WITHOUT VEST. NATHAN GIBBS CONVENTIONAL UNDERWRITER AT STATION INFORMED THAT PATIENT REFUSED LIFE VEST PER SAI "PATIENT HAS THE RIGHT TO REFUSE" WILL D/C PATIENT HOME
--- NOTE | 2020-04-02 11:32 | NUR ---
Discharge instructions given as ordered. Encourage to follow up with PMD as instructed. All questions and concerns addressed. Patient verbalized understanding. Medication reconciliation form completed and copy given to patient. Home medications held in Pharmacy returned to patient, and no needed vaccines given. IV removed with catheter intact, pressure dressing applied. Telemetry unit returned to ICU. Patient refused assistance from staff and ambulated with FWW to elevator with all personal belongings. No distress noted at time of departure.
== END 2020-04-02 11:32 | disposition home health service (06) | DRG 286 ==
LOC: ER 10:17 → TELE 10:18 → TELE-WESTW 18:14
PROVIDERS: ADMIT Nurse Practitioner Acute Care; ATTEND Internal Medicine
PROC: 4A023N7 Measurement of Cardiac Sampling and Pressure, Left Heart, Percutaneous Approach (ICD-10-PCS; principal; 2020-03-31)
PROC: B2111ZZ Fluoroscopy of Multiple Coronary Arteries using Low Osmolar Contrast (ICD-10-PCS; 2020-03-31)
PROC: B2151ZZ Fluoroscopy of Left Heart using Low Osmolar Contrast (ICD-10-PCS; 2020-03-31)
DX: R07.89 Other chest pain (principal); I50.43 Acute on chronic combined systolic (congestive) and diastolic (congestive) heart failure; I25.10 Atherosclerotic heart disease of native coronary artery without angina pectoris; D64.9 Anemia, unspecified; J44.9 Chronic obstructive pulmonary disease, unspecified; Z95.5 Presence of coronary angioplasty implant and graft; I11.0 Hypertensive heart disease with heart failure; E11.9 Type 2 diabetes mellitus without complications; E03.9 Hypothyroidism, unspecified; F17.210 Nicotine dependence, cigarettes, uncomplicated; E78.5 Hyperlipidemia, unspecified; G89.29 Other chronic pain; Z79.02 Long term (current) use of antithrombotics/antiplatelets; Z79.4 Long term (current) use of insulin; Z22.322 Carrier or suspected carrier of Methicillin resistant Staphylococcus aureus; Z82.3 Family history of stroke; Z71.6 Tobacco abuse counseling
CPT/HCPCS: 36415; 71045; 80048; 80053; 80061; 80307; 81001; 82962; 83036; 83735; 83880; 84443; 84484; 85025; 85610; 85730; 86141; 86850; 86900; 86901; 87081; 93005; 93306; 93458; 96374; 96375; 99152; 99153; G0378; J1815; J1885; J2250; J2405; Q9967

== ENCOUNTER 2020-04-03 17:57 | Inpatient (IN) | payer MEDICARE, MEDICAID ==
[~2020-04-03] VITALS: Ht 182.9 cm; Wt 88.0 kg
[~2020-04-03 17:57] MED LIST: ALBUAER3 IN; ASPI81CH43 PO; ATOR40TA52 PO; CARV12.544 PO; CLOP75TA41 PO; ESCI10TA53 PO; FAM20T PO; FUR20T PO; FURO1TAB33 PO; LEV25T PO; LISI-646 PO; NIC21P TOP; POTA1TAB61 PO; ZOLP10TA PO
[2020-04-03 19:41] LABS: Basophils # (auto) 0 10 ^3/uL (0-0.2); Basophils % (auto) 0.6 % (0.0-2.0); Eosinophils # (auto) 0.2 10 ^3/uL (0-0.8); Eosinophils % (auto) 3.5 % (0.0-7.0); Hematocrit 31.3 % (41.0-53.0); Hemoglobin 10.7 g/dL (13.5-17.5); Lymphocytes # (auto) 1.9 10 ^3/uL (0.4-5.4); Lymphocytes % (auto) 30.1 % (10.0-50.0); Mean Corpuscular Hemoglobin 28.7 pg (28.0-32.0); Mean Corpuscular Hgb Conc. 34.3 g/dL (32.0-36.0); Mean Corpuscular Volume 83.5 fL (80.0-100.0); Monocytes # (auto) 0.7 10 ^3/uL (0-1.3); Monocytes % (auto) 10.7 % (0.0-12.0); Neutrophils # (auto) 3.4 10 ^3/uL (1.6-8.6); Neutrophils % (auto) 55.1 % (37.0-80.0); Platelet Count (auto) 182 10^3/uL (140-450); Red Blood Cells 3.75 10^6/uL (4.5-5.90); Red Cell Distribution Width 16.4 % (11.8-14.3); White Blood Cell 6.2 10^3/uL (4.4-10.8)
[2020-04-03] MEDS ORDERED: SODIUM CHLORIDE 0.9% 1,000 ML IV ONE (19:45)
[2020-04-03 20:07] LABS: INR 1.07 (0.9-1.15); Partial Thromboplastin Time 27.8 sec (23.64-32.05)
[2020-04-03 20:11] LABS: Albumin 2.9 g/dL (3.4-5.0); BUN/Creatinine Ratio 14.6; Calcium 7.2 mg/dL (8.5-10.1); Potassium 4.2 mmol/L (3.5-5.1)
[2020-04-03 20:15] LABS: Bilirubin, Total 0.8 mg/dL (0.2-1.0); Total Protein 6.5 g/dL (6.4-8.2)
[2020-04-03] MEDS ORDERED: ONDANSETRON HCL 4 MG/2 ML VIAL IV ONE (21:15)
[2020-04-03] MEDS ORDERED: MORPHINE SULF INJ 2 MG/ML SYRINGE 1ML IV ONE (21:15)
[2020-04-03] MEDS ORDERED: cefTRIAXone 1GM/50ML D5W 50 ML IV ONE (21:45)
[2020-04-03] MEDS ORDERED: SODIUM CHLORIDE 0.9% 2,000 ML IV ONE (21:45)
[2020-04-03 22:16] LABS: Urine Bacteria FEW /hpf (None Seen); Urine Blood 2+ /uL (Negative); Urine Hyaline Cast FEW /lpf (0 - 2); Urine Mucus FEW (None Seen); Urine Specific Gravity 1.019 (1.001-1.035); Urine WBC 36 /hpf (0 - 3)
[2020-04-04] MEDS ORDERED: ACETAMINOPHEN 325 MG TAB PO PRN (00:45)
[2020-04-04] MEDS ORDERED: DEXTROSE (50%) 50ML SYRG IV PRN (00:45)
[2020-04-04] MEDS ORDERED: ONDANSETRON HCL 4 MG/2 ML VIAL IV PRN (00:45)
[2020-04-04] MEDS: SODIUM CHLORIDE 0.9% 1,000 ML IV SCH ×2 (01:01→14:08)
[2020-04-04] MEDS: MORPHINE SULF INJ 2 MG/ML SYRINGE 1ML IV PRN ×5 (02:28→21:45)
[2020-04-04] MEDS: InsuLIN REG 1unit/0.01ml Soln (100units/ml) SC SCH ×4 (07:01→23:26)
[2020-04-04] MEDS: LEVOTHYROXINE SODIUM 25 MCG TAB PO SCH (07:09)
[2020-04-04 07:10] LABS: Basophils # (auto) 0 10 ^3/uL (0-0.2); Basophils % (auto) 0.4 % (0.0-2.0); Eosinophils # (auto) 0.2 10 ^3/uL (0-0.8); Eosinophils % (auto) 3.1 % (0.0-7.0); Hematocrit 31.1 % (41.0-53.0); Hemoglobin 10.7 g/dL (13.5-17.5); Lymphocytes # (auto) 1.9 10 ^3/uL (0.4-5.4); Lymphocytes % (auto) 31.5 % (10.0-50.0); Mean Corpuscular Hemoglobin 28.9 pg (28.0-32.0); Mean Corpuscular Hgb Conc. 34.4 g/dL (32.0-36.0); Mean Corpuscular Volume 84.1 fL (80.0-100.0); Monocytes # (auto) 0.6 10 ^3/uL (0-1.3); Monocytes % (auto) 9.4 % (0.0-12.0); Neutrophils # (auto) 3.3 10 ^3/uL (1.6-8.6); Neutrophils % (auto) 55.6 % (37.0-80.0); Nucleated Red Blood Cells % 0.1 %; Platelet Count (auto) 164 10^3/uL (140-450); Red Cell Distribution Width 16.4 % (11.8-14.3)
[2020-04-04] MEDS: ACCU-CHEK COMFORT CURVE STRIP VI SCH ×4 (07:15→23:24)
[2020-04-04 07:24] LABS: Calcium 6.9 mg/dL (8.5-10.1); Potassium 4.5 mmol/L (3.5-5.1)
[2020-04-04 07:29] LABS: BUN/Creatinine Ratio 24.5
[2020-04-04] MEDS: ASPirin 81 mg TAB PO SCH (10:48)
[2020-04-04] MEDS: DOCUSATE SOD 100 MG CAP PO SCH (10:48)
[2020-04-04] MEDS: CARVEDILOL 3.125 MG TAB PO SCH ×2 (10:48→22:00)
[2020-04-04] MEDS: CLOPIDOGREL BISULFATE 75 MG TAB PO SCH (10:48)
[2020-04-04] MEDS: FAMOTIDINE 20 MG TAB PO SCH (10:48)
[2020-04-04] MEDS: LISINOPRIL 20 MG TAB PO SCH (10:48)
[2020-04-04] MEDS: NICOTINE 21MG/24 HR TOPICAL PATCH TD SCH (10:49)
--- NOTE | 2020-04-04 16:00 | NUR ---
Telemetry admit from [facility]BY admitted to Telemetry unit after SBAR received. Patient oriented to primary RN, unit, room, bed, and unit policies regarding patient care and visiting hours. Patient now on continuous telemetry monitoring, tele box # 64 and telemetry reading on arrival to unit is SR 70. Patient placed on bedside oxygen, weighed by bedscale and encouraged to call if they need something. All questions and concerns addressed, patient verbalized understanding.
[2020-04-04] MEDS ORDERED: DIA5T PO (17:15)
[2020-04-04 17:24] VITALS: BP 117/64
[2020-04-04] MEDS: FUROSEMIDE 40 MG/4 ML VIAL IV SCH (17:26)
[2020-04-04] MEDS: Glucerna Carbsteady SHAKE Vanilla 8oz PO SCH (17:27)
[2020-04-04 18:17] VITALS: BP 108/56
--- NOTE | 2020-04-04 19:40 | NUR ---
AMA TO SMOKE PATIENT REQUESTS TO GO OFF UNIT TO SMOKE. PATIENT EDUCATED THAT LEAVING WOULD BE AGAINST MEDICAL ADVICE AND POSSIBLE CONSEQUENCES OF LEAVING, PATIENT VERBALIZED UNDERSTANDING AND STATES INSISTS THAT HE WANTS TO GO DOWN. PATIENT EDUCATION REINFORCED AND PATIENT CONTINUE TO INSIST THAT HE GOES DOWN. PATIENT GIVEN INFORMED CONSENT FOR SMOKING. PATIENT SIGNS CONSENT AT THIS TIME (SEE IN CHART). PATIENT LEAVES OFF UNIT AT THIS TIME. WILL CONTINUE TO MONITOR.
--- NOTE | 2020-04-04 20:00 | NUR ---
RETURN TO UNIT PATIENT RETURNS TO UNIT SAFELY IN BED. WILL CONTINUE TO MONITOR.
--- NOTE | 2020-04-04 20:02 | NUR ---
IV removal IV to left AC occluded. IV DC'd with clean sterile technique and catheter fully intact. Pressure dressing applied to site. Patient educated on need to maintain dressing to prevent bleeding, patient verbalized understanding and in agreement. Patient tolerated well.
--- NOTE | 2020-04-04 20:10 | NUR ---
COCCYX ULCER UPON PHYSICAL ASSESSMENT, PATIENT NOTED TO HAVE ULCER ON COCCYX. PATIENT STATED HE HAS HAD IT OVER A YEAR AND HAS SHOWN IT TO HIS DOCTOR. WILL OBTAIN PHOTO (SEE IN CHART). PER PROTOCOL, WILL ODER DIETARY/AND WOUND CONSULT. WILL CONTINUE TO MONITOR.
--- NOTE | 2020-04-04 20:20 | NUR ---
OPTIFOAM PATIENT EDUCATED ON INDICATION AND ROUTINE CARE WHEN SOILED/WET, PATIENT VERBALIZED UNDERSTANDING AND IN AGREEMENT. OPTIFOAM APPLIED. PATIENT TOLERATED WELL. WILL CONTINUE TO MONITOR.
[2020-04-04] MEDS: POTASSIUM CHL 10 Meq TABLET PO SCH (21:44)
[2020-04-04] MEDS: ATORVASTATIN 20 MG TAB PO SCH (21:44)
--- NOTE | 2020-04-04 21:45 | NUR ---
PRN FOR CHEST PAIN PATIENT ALREADY ON 2 L NC. BLOOD PRESSURE 109/62 MM HM IN SEMI-ARRIETA'S POSITION, RESPIRATION 16 BREATHS/MINUTE EVEN AND UNLABORED, HEART RATE 65 BPM, OXYGEN SATURATION 95%, ORAL TEMPERATURE 98 F. PATIENT EDUCATED ON INDICATION AND POSSIBLE SIDE EFFECTS OF MEDICATION, PATIENT VERBALIZED UNDERSTANDING AND IN AGREEMENT. PRN GIVEN AT THIS TIME (SEE EMAR FOR ADMINISTRATION). WILL CONTINUE TO MONITOR.
--- NOTE | 2020-04-04 21:55 | NUR ---
CHEST PAIN PATIENT ASKS FOR PAIN MEDICINE AT THIS TIME. PATIENT ASKED FOR LOCATION. PATIENT STATES RIGHT "IN [HIS] HEART". PATIENT DOES NOT APPEAR TO BE IN ANY S/S OF ACUTE DISTRESS. PATIENT ASKED FOR PAIN SCORE RATED ON ADULT SCALE, PATIENT STATES 9/10. PATIENT DENIES N/V, SOB, WEAKNESS, TINGLING, AND FURTHER ABNORMAL SYMPTOMS. PATIENT STATES HE FEELS COLD. UPON PALPATION, PATIENT IS WARM EQUAL BILATERALLY IN ALL EXTREMITIES. PATIENT STATES HIS CHEST PAIN IS SEVERE AND PERSISTS DESPITE PREVIOUS PRN MEDICATIONS FOR RELIEF (SEE EMAR). PATIENT STATES "MORPHINE" HELPS A LITTLE, WHICH HELPS REDUCE TO A TOLERABLE PAIN LEVEL. PATIENT DENIES WORSENING OF CHEST PAIN FROM PREVIOUS EXPERIENCED PAIN TODAY. WILL OBTAIN EKG. WILL CONTINUE TO MONITOR. Addendum: 04/05/20 at 0017 by MUSTAPHA FARMER RN RN TIME AMEND: [id number]
--- NOTE | 2020-04-04 21:57 | NUR ---
EKG OBTAINED PATIENT EDUCATED ON PROCEDURE AND INDICATION, PATIENT VERBALIZED UNDERSTANDING AND IN AGREEMENT. EKG OBTAINED AT THIS TIME, READS SINUS RHYTHM WITH NONSPECIFIC T ABNORMALITY. WILL PAGED ON-CALL HOSP. WILL CONTINUE TO MONITOR PATIENT.
[2020-04-04 22:00] VITALS: BP 109/62
--- NOTE | 2020-04-04 22:00 | NUR ---
ON-CALL HOSP PAGED ON-CALL HOSP PAGED TO UPDATE ON PATIENT'S PERSISTENT CHEST PAIN AND EKG. AWAITING CALL BACK. WILL CONTINUE TO MONITOR.
[2020-04-04] MEDS: NITROGLYCERIN 0.4 MG SL TAB SL PRN (22:15)
--- NOTE | 2020-04-04 22:15 | NUR ---
CP REASSESSMENT AND 2ND PRN ADMIN PATIENT STATES HIS PAIN IS A 7/10 AND IS TOLERABLE, HOWEVER PAIN CONTINUES TO PERSIST. PATIENT EDUCATED ON PRN NITRO FOR CHEST PAIN, EXPECTED/POSSIBLE SIDE EFFECTS, AND PROPER ADMINISTRATION, PATIENT VERBALIZED UNDERSTANDING AND IN AGREEMENT. PRN FOR CHEST PAIN ADMINISTERED SUBLINGUALLY AT THIS TIME (SEE EMAR FOR ADMINISTRATION). WILL CONTINUE TO MONITOR.
--- NOTE | 2020-04-04 22:20 | NUR ---
NO-CALL BACK FORM ON-CALL HOSP NO CALL-BACK RECEIVED YET AT THIS TIME. WILL WALK TO HOSP ROOM TO SEE IN PERSON.
--- NOTE | 2020-04-04 22:30 | NUR ---
ON-CALL HOSP COMMUNICATION SPOKE TO ON-CALL HOSP IN PERSON AT THIS TIME. UPDATED ICER HAND ON PATIENT'S RECENT/PERSIST CHEST PAIN, EKG SHOWN. RECEIVED RECOMMENDATION TO PAGE ON-CALL FISH ROE PROCESSOR. WILL PAGE. WILL CONTINUE TO MONITOR.
--- NOTE | 2020-04-04 22:35 | NUR ---
ON-CALL SHOVEL LOGGER PAGED ON-CALL SHOVEL LOGGER PAGED. AWAITING CALL BACK. WILL CONTINUE TO MONITOR.
--- NOTE | 2020-04-04 22:38 | NUR ---
RECEIVED CALL BACK FROM ON-CALL NECKTIE MAKER UPDATED MD YANG ON PATIENT STATUS, PERSISTENT CHEST PAIN, RECENT PROCEDURE PERFORMED FROM RECENT HOSPITAL VISIT BY THIS MD, LATEST VITAL SIGNS, ACS PROTOCOL INTERVENTIONS PERFORMED, EKG READING LATEST AND INITIAL, CURRENT MEDICATIONS, AND CURRENT LAB VALUES. CONSULT ALREADY IN PLACE FOR MD YANG. NO NEW ORDERS RECEIVED. MD STATED PATIENT IS STABLE AND TO NOTIFY MD IF SYMPTOMS OR PATIENT STATUS BECOME WORSE. WILL CONTINUE TO MONITOR PATIENT.
--- NOTE | 2020-04-04 23:10 | NUR ---
PATIENT REQUESTS PRN FOR INSOMNIA PATIENT REQUESTS "SLEEPING PILL" AT THIS TIME. PATIENT EDUCATED ON SIDE EFFECTS OF MEDICATION AND COMPOUNDED SIDE EFFECTS OF RECENT MEDICATIONS GIVEN. PATIENT'S BLOOD PRESSURE TAKEN AT THIS TIME: 98/51 MM HM, HEART RATE 63 BPM. PATIENT INFORMED THAT THIS RN DOES NOT ADVISE MEDICATION AT THIS TIME DUE TO FURTHER REDUCING BLOOD PRESSURE AND HEART RATE, PATIENT VERBALIZED UNDERSTANDING AND IN AGREEMENT. WILL CONTINUE TO MONITOR.
--- NOTE | 2020-04-05 05:22 | NUR ---
WOUND PHOTOS OBTAINED WOUND PHOTOS OBTAINED. WOUND CONSULT AND DIETARY CONSULT IN PLACE. SKIN/WOUND CARE PLAN INITIATED. WILL CONTINUE TO MONITOR.
[2020-04-05 05:34] VITALS: BP 123/76
[2020-04-05 05:39] LABS: Basophils # (auto) 0 10 ^3/uL (0-0.2); Basophils % (auto) 0.7 % (0.0-2.0); Eosinophils # (auto) 0.3 10 ^3/uL (0-0.8); Hematocrit 30.1 % (41.0-53.0); Hemoglobin 10.4 g/dL (13.5-17.5); Lymphocytes # (auto) 1.6 10 ^3/uL (0.4-5.4); Lymphocytes % (auto) 33.9 % (10.0-50.0); Mean Corpuscular Hemoglobin 29.3 pg (28.0-32.0); Mean Corpuscular Hgb Conc. 34.5 g/dL (32.0-36.0); Monocytes # (auto) 0.5 10 ^3/uL (0-1.3); Monocytes % (auto) 10.3 % (0.0-12.0); Neutrophils # (auto) 2.3 10 ^3/uL (1.6-8.6); Neutrophils % (auto) 48.1 % (37.0-80.0); Platelet Count (auto) 152 10^3/uL (140-450); Red Blood Cells 3.54 10^6/uL (4.5-5.90); Red Cell Distribution Width 16.1 % (11.8-14.3); White Blood Cell 4.7 10^3/uL (4.4-10.8)
[2020-04-05] MEDS: FUROSEMIDE 40 MG/4 ML VIAL IV SCH ×2 (05:51→18:20)
[2020-04-05 06:01] LABS: Anion Gap 4 (5-15); Blood Urea Nitrogen 33 mg/dL (7-18); Calcium 8.1 mg/dL (8.5-10.1); Carbon Dioxide 28 mmol/L (21-32); Chloride 108 mmol/L (98-107); Glucose 92 mg/dL (74-106); Sodium 140 mmol/L (136-145)
[2020-04-05] MEDS: NITROGLYCERIN 0.4 MG SL TAB SL PRN (06:01)
[2020-04-05] MEDS: LEVOTHYROXINE SODIUM 25 MCG TAB PO SCH (06:01)
--- NOTE | 2020-04-05 06:01 | NUR ---
PAIN ASSESSMENT PATIENT STATES HIS PAIN IS RATED 8/10 USING ADULT PAIN SCALE WITH NO ADDITIONAL SYMPTOMS. PATIENT IN RIGHT SIDE-LYING POSITION AND IN NO ACUTE S/S OF DISTRESS OR CHANGE IN APPEARANCE. PATIENT EDUCATED ON PRN FOR CHEST PAIN, PATIENT VERBALIZED UNDERSTANDING AND IN AGREEMENT. SEE EMAR FOR ADMINISTRATION. WILL CONTINUE TO MONITOR.
--- NOTE | 2020-04-05 06:06 | NUR ---
PAIN REASSESSMENT PATIENT REASSESSED FOR CHEST PAIN INITIAL 05/23. PATIENT STATES MEDICATION HELPED "A LIL" AND UNABLE TO DICTATE NUMBER FOR REASSESSMENT. PATIENT REFUSED SECOND DOSE OF NITRO. PATIENT EDUCATION REINFORCED AND PATIENT CONTINUES TO REFUSE. PATIENT STATES, "I'LL JUST WAIT FOR DOCTOR YANG TO COME SO I CAN TALK TO HIM." PATIENT ENCOURAGED TO CALL IF PAIN CHANGES/WORSENS. WILL CONTINUE TO MONITOR.
[2020-04-05 06:08] LABS: BUN/Creatinine Ratio 39.8; GFR African American 119 mL/min; GFR Non-African American 98 mL/min
[2020-04-05] MEDS: ACCU-CHEK COMFORT CURVE STRIP VI SCH ×4 (06:13→23:24)
[2020-04-05] MEDS: InsuLIN REG 1unit/0.01ml Soln (100units/ml) SC SCH ×4 (06:15→23:24)
--- NOTE | 2020-04-05 08:00 | NUR ---
PT RESTING IN BED. PT REPORTS 8/10 PAIN IN CHEST RADIATING DOWN TO BOTH LEGS, AND REPORTS HE WANTS TO STEP OUTSIDE TO HAVE A SMOKE. PT ADVISED TO STAY IN BED. VITALS: 108/64, HR 77, 02 98 ON RA, RR 16, T 97.6. DID STAT ECG, READS HR [address] BRAVO, NOTIFIED MD OF CHEST PAIN, VITALS, AND ECG RESULTS, ECG SIGNED OFF AND PLACED IN CHART, MD AWARE, NEW ORDERS FOR MORPHINE Q 4. PT REPORTS HE WILL STAY IN BED.
[2020-04-05 09:00] VITALS: BP 147/69
[2020-04-05] MEDS ORDERED: cefTRIAXone 1GM/50ML D5W 50 ML IV ONE (09:15)
[2020-04-05] MEDS ORDERED: LEVOTHYROXINE SODIUM 25 MCG TAB PO ONE (09:30)
[2020-04-05] MEDS: DOCUSATE SOD 100 MG CAP PO SCH (10:00)
[2020-04-05] MEDS: NICOTINE 21MG/24 HR TOPICAL PATCH TD SCH (10:00)
[2020-04-05] MEDS: MORPHINE SULF INJ 2 MG/ML SYRINGE 1ML IV PRN ×3 (10:18→21:55)
--- NOTE | 2020-04-05 10:22 | NUR ---
WOUND CARE NOTE: Wound care in to see patient per wound care request regarding skin integrity issue that are noted present on admission. Bedside nurse took photograph of patient's skin issue upon admission for reference. Patient is 69 years old male with admitting diagnosis of Unstable Angina. Patient is resting in bed in Rm. 270B. He's awake,alert and oriented. Patient is ambulatory and self turning and repositioning. His Rory score is 19. Skin/wound assessment done with the assistance of another nurse, ANDRES Huston. Patient's distal medial sacrum noted with tiny wound (0.5x0.5cm) with bright and dark red blanchable margarito wound. Patient reported that he has had the sacral wound "for a year off and on". Sacral wound appears to be from moisture. Staff initiated BID/PRN cleaning and application of Z Guard cream to sacral, buttocks and covered wound with Opti foam gentle dressing. Patient tolerated, ANDRES Bryson at bedside. RECOMMENDATION: Nursing to continue with BID/PRN cleaning and application of Z Guard cream sacral, buttocks per MD order,Dietary consult for wound, redistribute pressure points with pillows, keep clean and dry, continue monitoring by wound care while patient is hospitalized. Addendum: 04/05/20 at 1546 by Ashleigh Falcon RN Amended: Links added.
[2020-04-05] MEDS: ASPirin 81 mg TAB PO SCH (10:23)
[2020-04-05] MEDS: FAMOTIDINE 20 MG TAB PO SCH (10:24)
[2020-04-05] MEDS: LISINOPRIL 20 MG TAB PO SCH (10:24)
[2020-04-05] MEDS: CARVEDILOL 3.125 MG TAB PO SCH ×2 (10:25→21:39)
[2020-04-05] MEDS: CLOPIDOGREL BISULFATE 75 MG TAB PO SCH (10:26)
[2020-04-05] MEDS: POTASSIUM CHL 10 Meq TABLET PO SCH ×2 (10:26→21:38)
[2020-04-05] MEDS: Glucerna Carbsteady SHAKE Vanilla 8oz PO SCH ×3 (10:34→18:20)
[2020-04-05 13:00] VITALS: BP 126/64
--- NOTE | 2020-04-05 13:15 | NUR ---
MICRO CALLED, PT POSITIVE FOR MRSA IN THE NARES. CALLED PBX AND PAGED DR BRAVO, AWAITING CALL BACK.
--- NOTE | 2020-04-05 13:18 | NUR ---
DR BRAVO CALLED BACK, NOTIFIED PT POSITIVE FOR MRSA IN NARES, AWARE, NEW ORDERS FOR BACTROBAN.
[2020-04-05 14:00] VITALS: BP 139/56
--- NOTE | 2020-04-05 14:13 | NUR ---
Est energy needs [id number] kcal (18-20 kcal/kg BW 96.6kg) Est protein needs 77-97g (0.8-1g/kg BW 96.6kg) Will reassess prn. Addendum: 04/05/20 at [address] Amended: Links added.
--- NOTE | 2020-04-05 16:19 | NUR ---
PT HR 51 ON MONITOR. ASSESSED PT, PT SLEEPING. WOKE PATIENT, PT REPORTS HE STILL HAS CHEST PAIN, WILL GIVE PRN PAIN MEDICATION. CALLED PBX AND PAGED DR BRAVO. DR BRAVO CALLED BACK, NOTIFIED MD HR 51. NEW ORDERS TO CHANGE COREG DOSE FROM 12.5 TO 6.25 BID.
[2020-04-05 17:01] VITALS: BP 118/58
--- NOTE | 2020-04-05 20:00 | NUR ---
Opening Shift Note Assumed care of patient, awake and alert. No S/S of distress/SOB or pain. Instructed on POC and to call for assist PRN, will continue to monitor for changes Q1hr and PRN.
[2020-04-05 21:30] VITALS: BP 109/64
[2020-04-05] MEDS: ATORVASTATIN 20 MG TAB PO SCH (21:38)
[2020-04-05] MEDS: MUPIROCIN 2% OINT 15gm or 22gm EACHNOSTRI SCH (21:39)
[2020-04-05] MEDS: RANOLAZINE ER 500 MG TAB PO SCH (21:44)
--- NOTE | 2020-04-05 23:13 | NUR ---
Very persitent to have deisy dyer, checked his blood sugar early, so that he can have snack.
[2020-04-06] MEDS: MORPHINE SULF INJ 2 MG/ML SYRINGE 1ML IV PRN ×4 (03:26→21:24)
[2020-04-06 05:00] VITALS: BP 121/69
[2020-04-06] MEDS: ACCU-CHEK COMFORT CURVE STRIP VI SCH ×3 (05:40→18:00)
[2020-04-06] MEDS: FUROSEMIDE 40 MG/4 ML VIAL IV SCH ×2 (05:40→18:36)
[2020-04-06] MEDS: InsuLIN REG 1unit/0.01ml Soln (100units/ml) SC SCH ×3 (05:43→18:00)
[2020-04-06 06:16] LABS: Basophils # (auto) 0 10 ^3/uL (0-0.2); Basophils % (auto) 0.6 % (0.0-2.0); Eosinophils # (auto) 0.2 10 ^3/uL (0-0.8); Eosinophils % (auto) 5.3 % (0.0-7.0); Hematocrit 32.3 % (41.0-53.0); Hemoglobin 11.2 g/dL (13.5-17.5); Lymphocytes # (auto) 1.4 10 ^3/uL (0.4-5.4); Lymphocytes % (auto) 30.4 % (10.0-50.0); Mean Corpuscular Hemoglobin 29.3 pg (28.0-32.0); Mean Corpuscular Hgb Conc. 34.5 g/dL (32.0-36.0); Mean Corpuscular Volume 84.8 fL (80.0-100.0); Monocytes # (auto) 0.4 10 ^3/uL (0-1.3); Monocytes % (auto) 9.7 % (0.0-12.0); Neutrophils # (auto) 2.5 10 ^3/uL (1.6-8.6); Nucleated Red Blood Cells % 0.1 %; Platelet Count (auto) 153 10^3/uL (140-450); Red Blood Cells 3.81 10^6/uL (4.5-5.90); Red Cell Distribution Width 16.4 % (11.8-14.3); White Blood Cell 4.6 10^3/uL (4.4-10.8)
[2020-04-06] MEDS: LEVOTHYROXINE SODIUM 50 MCG TAB PO SCH (06:21)
[2020-04-06 06:32] LABS: BUN/Creatinine Ratio 41.1; Calcium 8.3 mg/dL (8.5-10.1); Potassium 3.9 mmol/L (3.5-5.1)
--- NOTE | 2020-04-06 07:11 | NUR ---
Care report given to Afshin Cortez, patient is resting no distress.
--- NOTE | 2020-04-06 07:15 | NUR ---
opening shift note Assumed care patient comfortably resting in bed, AOx4, denies pain at this time. No s/s of distress noted at this moment. Patient updated on POC for the day and to call for assistance as needed, patient verbalized understanding. Will continue care.
[2020-04-06] MEDS: Glucerna Carbsteady SHAKE Vanilla 8oz PO SCH ×3 (08:00→18:00)
[2020-04-06 09:00] VITALS: BP 120/76
[2020-04-06] MEDS: cefTRIAXone 1GM/50ML D5W 50 ML IV SCH (09:15)
[2020-04-06] MEDS: CARVEDILOL 3.125 MG TAB PO SCH ×2 (09:16→18:37)
[2020-04-06] MEDS: NICOTINE 21MG/24 HR TOPICAL PATCH TD SCH (10:00)
[2020-04-06] MEDS: FAMOTIDINE 20 MG TAB PO SCH (10:58)
[2020-04-06] MEDS: MUPIROCIN 2% OINT 15gm or 22gm EACHNOSTRI SCH ×2 (10:58→21:23)
[2020-04-06] MEDS: DOCUSATE SOD 100 MG CAP PO SCH (10:58)
[2020-04-06] MEDS: CLOPIDOGREL BISULFATE 75 MG TAB PO SCH (10:58)
[2020-04-06] MEDS: RANOLAZINE ER 500 MG TAB PO SCH ×2 (10:58→21:23)
[2020-04-06] MEDS: ASPirin 81 mg TAB PO SCH (10:58)
[2020-04-06] MEDS: LISINOPRIL 20 MG TAB PO SCH (10:59)
[2020-04-06] MEDS: POTASSIUM CHL 10 Meq TABLET PO SCH ×2 (10:59→21:22)
[2020-04-06] MEDS ORDERED: PANTOPRAZOLE 40 MG TAB PO ONE (12:00)
[2020-04-06] MEDS ORDERED: SUCRALFATE 1 GM/10 ML ORAL SUSP PO ONE (12:00)
[2020-04-06 13:00] VITALS: BP 133/60
[2020-04-06 17:00] VITALS: BP 102/64
[2020-04-06] MEDS: SUCRALFATE 1 GM/10 ML ORAL SUSP PO SCH ×2 (17:28→21:22)
--- NOTE | 2020-04-06 18:00 | NUR ---
Barium swallow test scheduled for tomorrow per technical sales specialist Received a call from [facility], they're unable to perform Esophagus barium swallow test today. Patient scheduled for 04/07/20. Please keep patient NPO after midnight.
[2020-04-06] MEDS ORDERED: POLYETHYLENE GLYCOL 17 GM PWDR PO ONE (19:35)
[2020-04-06] MEDS: ATORVASTATIN 20 MG TAB PO SCH (21:22)
[2020-04-06] MEDS: PANTOPRAZOLE 40 MG TAB PO SCH (21:23)
[2020-04-06 22:00] VITALS: BP 123/69
[2020-04-06] MEDS: ZOLPIDEM TARTRATE 5 MG TAB PO PRN (22:38)
[2020-04-07] MEDS: InsuLIN REG 1unit/0.01ml Soln (100units/ml) SC SCH ×5 (00:11→23:14)
[2020-04-07] MEDS: ACCU-CHEK COMFORT CURVE STRIP VI SCH ×5 (00:13→23:30)
[2020-04-07] MEDS: MORPHINE SULF INJ 2 MG/ML SYRINGE 1ML IV PRN ×6 (03:42→23:34)
[2020-04-07 05:00] VITALS: BP 106/60
[2020-04-07 06:00] LABS: Basophils # (auto) 0 10 ^3/uL (0-0.2); Basophils % (auto) 0.8 % (0.0-2.0); Eosinophils # (auto) 0.2 10 ^3/uL (0-0.8); Eosinophils % (auto) 4.9 % (0.0-7.0); Hematocrit 33.1 % (41.0-53.0); Hemoglobin 11.5 g/dL (13.5-17.5); Lymphocytes # (auto) 1.5 10 ^3/uL (0.4-5.4); Mean Corpuscular Hemoglobin 29.8 pg (28.0-32.0); Mean Corpuscular Hgb Conc. 34.8 g/dL (32.0-36.0); Mean Corpuscular Volume 85.7 fL (80.0-100.0); Monocytes # (auto) 0.5 10 ^3/uL (0-1.3); Monocytes % (auto) 9.8 % (0.0-12.0); Neutrophils # (auto) 2.7 10 ^3/uL (1.6-8.6); Neutrophils % (auto) 54.5 % (37.0-80.0); Nucleated Red Blood Cells % 0.1 %; Platelet Count (auto) 173 10^3/uL (140-450); Red Blood Cells 3.86 10^6/uL (4.5-5.90); Red Cell Distribution Width 16.7 % (11.8-14.3)
[2020-04-07 06:11] LABS: Potassium 3.9 mmol/L (3.5-5.1)
[2020-04-07] MEDS: FUROSEMIDE 40 MG/4 ML VIAL IV SCH ×2 (06:12→17:40)
[2020-04-07] MEDS: LEVOTHYROXINE SODIUM 50 MCG TAB PO SCH (06:12)
[2020-04-07] MEDS: SUCRALFATE 1 GM/10 ML ORAL SUSP PO SCH ×4 (06:12→22:18)
[2020-04-07 06:16] LABS: BUN/Creatinine Ratio 46.1; Calcium 8.6 mg/dL (8.5-10.1)
--- NOTE | 2020-04-07 07:15 | NUR ---
OPENING SHIFT NOTE: Assumed care of patient. Patient is awake, alert and oriented X 4. No s/s of SOB or distress. Bed is in lowest locked position with two side rails raised, bed alarm activated for safety, and call carnes within reach. Instructed on POC and encouraged to use call carnes for assistance, all questions and concerns addressed, patient verbalizes understanding. Will continue to monitor Q1 hr and PRN.
[2020-04-07] MEDS ORDERED: GASTROGRAFIN 120 ML SOL ONE (07:24)
[2020-04-07] MEDS: Glucerna Carbsteady SHAKE Vanilla 8oz PO SCH ×3 (08:00→17:41)
[2020-04-07] MEDS: CARVEDILOL 3.125 MG TAB PO SCH ×2 (08:00→17:40)
[2020-04-07] MEDS ORDERED: BARIUM SULFATE 98% 340 GM PWDR ONE (08:56)
[2020-04-07] MEDS ORDERED: EZ PAQUE SUSP 12OZ BTL ONE (08:57)
[2020-04-07] MEDS ORDERED: EZ-GAS II GRANULES (RADIOLOGY USE) PO ONE (08:57)
[2020-04-07 09:00] VITALS: BP 129/66
[2020-04-07] MEDS: MUPIROCIN 2% OINT 15gm or 22gm EACHNOSTRI SCH ×2 (09:48→22:00)
[2020-04-07] MEDS: cefTRIAXone 1GM/50ML D5W 50 ML IV SCH (09:48)
[2020-04-07] MEDS: POLYETHYLENE GLYCOL 17 GM PWDR PO PRN ×2 (09:49→23:01)
[2020-04-07] MEDS: DOCUSATE SOD 100 MG CAP PO SCH (09:49)
[2020-04-07] MEDS: ASPirin 81 mg TAB PO SCH (09:49)
[2020-04-07] MEDS: CLOPIDOGREL BISULFATE 75 MG TAB PO SCH (09:49)
[2020-04-07] MEDS: RANOLAZINE ER 500 MG TAB PO SCH ×2 (09:50→22:19)
[2020-04-07] MEDS: PANTOPRAZOLE 40 MG TAB PO SCH ×2 (09:50→22:18)
[2020-04-07] MEDS: LISINOPRIL 20 MG TAB PO SCH (09:50)
[2020-04-07] MEDS: POTASSIUM CHL 10 Meq TABLET PO SCH ×2 (09:50→22:18)
[2020-04-07] MEDS: NICOTINE 21MG/24 HR TOPICAL PATCH TD SCH (09:51)
[2020-04-07] MEDS: FAMOTIDINE 20 MG TAB PO SCH (09:51)
--- NOTE | 2020-04-07 11:40 | NUR ---
at bedside Dr. Avendano at bedside. No new orders received at this time. Plan is for patient to have Endoscopy tomorrow with Dr. Jose Alberto Rocha.
[2020-04-07 13:00] VITALS: BP 131/82
[2020-04-07 17:00] VITALS: BP 131/69
--- NOTE | 2020-04-07 17:00 | NUR ---
Unable to obtain consent Unable to obtain consent for scheduled procedure on 04/08/20. Patient wishes to speak to doctor before signing to get some clarification and further education on the procedure.
--- NOTE | 2020-04-07 19:10 | NUR ---
Opening Shift Note Assumed care of patient, awake, alert and oriented x4, on room air with even and unlabored respirations, no S/S of distress/SOB or pain. Patient able to turn in bed independently, bed in lowest locked position, side rails up x2, and call light within reach. Instructed on POC and to call for assist PRN, will continue to monitor for changes Q1hr and PRN.
[2020-04-07 22:14] VITALS: BP 126/65
[2020-04-07] MEDS: ATORVASTATIN 20 MG TAB PO SCH (22:18)
[2020-04-08] MEDS: MORPHINE SULF INJ 2 MG/ML SYRINGE 1ML IV PRN ×2 (05:05→22:13)
[2020-04-08 05:07] VITALS: BP 106/53
[2020-04-08] MEDS: InsuLIN REG 1unit/0.01ml Soln (100units/ml) SC SCH ×3 (06:00→18:16)
[2020-04-08] MEDS: ACCU-CHEK COMFORT CURVE STRIP VI SCH ×3 (06:16→18:19)
[2020-04-08] MEDS: FUROSEMIDE 40 MG/4 ML VIAL IV SCH ×2 (06:17→18:10)
[2020-04-08] MEDS: LEVOTHYROXINE SODIUM 50 MCG TAB PO SCH (06:42)
[2020-04-08] MEDS: SUCRALFATE 1 GM/10 ML ORAL SUSP PO SCH ×4 (06:42→22:13)
[2020-04-08] MEDS: Glucerna Carbsteady SHAKE Vanilla 8oz PO SCH ×3 (08:00→18:12)
[2020-04-08] MEDS: CARVEDILOL 3.125 MG TAB PO SCH ×2 (08:00→18:12)
[2020-04-08 09:00] VITALS: BP 121/64
[2020-04-08] MEDS: cefTRIAXone 1GM/50ML D5W 50 ML IV SCH (09:00)
--- NOTE | 2020-04-08 09:52 | NUR ---
Patient taken to pre op via bed for EGD
[2020-04-08] MEDS: ASPirin 81 mg TAB PO SCH (10:00)
[2020-04-08] MEDS: PANTOPRAZOLE 40 MG TAB PO SCH ×2 (10:00→22:13)
[2020-04-08] MEDS: LISINOPRIL 20 MG TAB PO SCH (10:00)
[2020-04-08] MEDS: NICOTINE 21MG/24 HR TOPICAL PATCH TD SCH (10:00)
[2020-04-08] MEDS: MUPIROCIN 2% OINT 15gm or 22gm EACHNOSTRI SCH ×2 (10:00→22:00)
[2020-04-08] MEDS: DOCUSATE SOD 100 MG CAP PO SCH (10:00)
[2020-04-08] MEDS: RANOLAZINE ER 500 MG TAB PO SCH ×2 (10:00→22:13)
[2020-04-08] MEDS: CLOPIDOGREL BISULFATE 75 MG TAB PO SCH (10:00)
[2020-04-08] MEDS: FAMOTIDINE 20 MG TAB PO SCH (10:00)
[2020-04-08] MEDS: POTASSIUM CHL 10 Meq TABLET PO SCH ×2 (10:00→22:13)
--- NOTE | 2020-04-08 10:07 | NUR ---
Assumed care of patient from nurse Cortez. Pt remains NPO for procedure today. Addendum: 04/08/20 at 1009 by Dahiana Reyes RN assumed care at 0850
[2020-04-08] MEDS ORDERED: LIDOCAINE VISCOUS 2% 15ML UD ONE (10:14)
[2020-04-08] MEDS ORDERED: diphenhdrAMINE HCL 50 MG/1 ML VL ONE (10:14)
[2020-04-08] MEDS ORDERED: SODIUM CHLORIDE LOCK 10 ML ONE (10:14)
[2020-04-08] MEDS: fentaNYL CITRATE 100 MCG/2 ML VL ONE ×2 (11:59→12:02)
[2020-04-08] MEDS: MIDAZOLAM HCL 5 MG/ML-1ML VIAL ONE ×3 (11:59→12:09)
--- NOTE | 2020-04-08 13:10 | NUR ---
Patient returned from procedure. No c/o pain. Pt. sleepy but arouses easily.
[2020-04-08] MEDS ORDERED: MAGNESIUM CITRATE SOLUTION 300 ML BTL PO ONE (13:30)
--- NOTE | 2020-04-08 14:13 | NUR ---
Nutrition Followup Note Wt 88.0kg Pt was off the floor for procedure. Per MD note pt scheduled for EGD 04/08. Pt is NPO for procedure. Prior to NPO pt with adequate po intake aeb pt with 100% po intake per RN doc. Will monitor pt po status and intake. Est energy needs [id number] kcal (18-20 kcal/kg BW 96.6kg) Est protein needs 77-97g (0.8-1g/kg BW 96.6kg) Will reassess prn. Labs: GLUC 142H, BUN 35H, Alb 2.9L BM: Pt with no noted BM in RN doc Skin: BS 20 low risk, full details in RN doc PES: Overweight r/t caloric intake in excess of needs aeb pt BMI is 28.9 kg/m2 Comments 1) Continue monitor po intake, labs, skin 2) Refer pt to [facility] on DC 3) Continue current plan of care Expected Outcomes/Goals: 1) PO intake >75% 2) pt will maintain wt while in hospital 3) f/u 3-5 days
--- NOTE | 2020-04-08 15:20 | NUR ---
assessment Patient is a 69 year old male who is alert and oriented. Prior to admission patient lived home with family and was independent. patient has a fww for home use. Patients PCP is Dr Jacobo. Patient is on service with [facility]. Patient will need a resumption order on discharge. Patient informed me he came back to ER for chest pain. Patient also informed me he cannot have a bowel movement. Patient is being seen by GI. Patient has no safety concerns regarding returning home on discharge. I will continue to monitor and follow up as appropriate. Patient verbalized understanding and agreed to discharge plan home. Addendum: 04/08/20 at 1523 by Kadi LI Amended: Links added.
--- NOTE | 2020-04-08 15:55 | NUR ---
Mag Citrate given as ordered for complaint of constipation
[2020-04-08 17:00] VITALS: BP_SYST 121; BP_SYST 129; BP_DIAS 64; BP_DIAS 81
[2020-04-08 22:00] VITALS: BP 112/67
[2020-04-08] MEDS: ATORVASTATIN 20 MG TAB PO SCH (22:13)
[2020-04-08] MEDS: ZOLPIDEM TARTRATE 5 MG TAB PO PRN (22:15)
[2020-04-09] MEDS: ACCU-CHEK COMFORT CURVE STRIP VI SCH ×4 (02:23→17:12)
[2020-04-09] MEDS: InsuLIN REG 1unit/0.01ml Soln (100units/ml) SC SCH ×4 (02:24→17:17)
[2020-04-09] MEDS: MORPHINE SULF INJ 2 MG/ML SYRINGE 1ML IV PRN ×4 (04:54→22:55)
[2020-04-09 05:27] VITALS: BP 126/64
[2020-04-09] MEDS: FUROSEMIDE 40 MG/4 ML VIAL IV SCH ×2 (06:37→17:11)
[2020-04-09] MEDS: SUCRALFATE 1 GM/10 ML ORAL SUSP PO SCH ×4 (06:38→21:33)
[2020-04-09] MEDS: LEVOTHYROXINE SODIUM 50 MCG TAB PO SCH (06:39)
[2020-04-09] MEDS: cefTRIAXone 1GM/50ML D5W 50 ML IV SCH (07:40)
[2020-04-09] MEDS: Glucerna Carbsteady SHAKE Vanilla 8oz PO SCH ×3 (07:40→17:49)
[2020-04-09] MEDS: CARVEDILOL 3.125 MG TAB PO SCH ×2 (07:40→17:12)
[2020-04-09 09:00] VITALS: BP 125/68
[2020-04-09] MEDS: ASPirin 81 mg TAB PO SCH (09:02)
[2020-04-09] MEDS: PANTOPRAZOLE 40 MG TAB PO SCH ×2 (09:02→21:34)
[2020-04-09] MEDS: CLOPIDOGREL BISULFATE 75 MG TAB PO SCH (09:02)
[2020-04-09] MEDS: RANOLAZINE ER 500 MG TAB PO SCH ×2 (09:02→21:34)
[2020-04-09] MEDS: FAMOTIDINE 20 MG TAB PO SCH (09:02)
[2020-04-09] MEDS: LISINOPRIL 20 MG TAB PO SCH (09:03)
[2020-04-09] MEDS: POTASSIUM CHL 10 Meq TABLET PO SCH ×2 (09:03→21:33)
[2020-04-09] MEDS: DOCUSATE SOD 100 MG CAP PO SCH (09:04)
[2020-04-09] MEDS: POLYETHYLENE GLYCOL 17 GM PWDR PO PRN (09:04)
[2020-04-09] MEDS: MUPIROCIN 2% OINT 15gm or 22gm EACHNOSTRI SCH ×2 (09:04→21:32)
[2020-04-09] MEDS: NICOTINE 21MG/24 HR TOPICAL PATCH TD SCH (09:04)
--- NOTE | 2020-04-09 14:08 | NUR ---
Received a call from Dr. Aj Cartagena stated patient is cleared from GI standpoint.
[2020-04-09 17:04] VITALS: BP 139/72
[2020-04-09] MEDS: ATORVASTATIN 20 MG TAB PO SCH (21:34)
[2020-04-09 21:45] VITALS: BP 139/71
[2020-04-09] MEDS: ZOLPIDEM TARTRATE 5 MG TAB PO PRN (22:41)
[2020-04-10] MEDS: MORPHINE SULF INJ 2 MG/ML SYRINGE 1ML IV PRN ×3 (02:59→11:04)
[2020-04-10 05:16] VITALS: BP 112/63
[2020-04-10 05:44] LABS: Basophils # (auto) 0 10 ^3/uL (0-0.2); Basophils % (auto) 0.6 % (0.0-2.0); Eosinophils # (auto) 0.2 10 ^3/uL (0-0.8); Eosinophils % (auto) 3.7 % (0.0-7.0); Hemoglobin 11.5 g/dL (13.5-17.5); Lymphocytes # (auto) 1.7 10 ^3/uL (0.4-5.4); Lymphocytes % (auto) 31.9 % (10.0-50.0); Mean Corpuscular Hemoglobin 29.4 pg (28.0-32.0); Mean Corpuscular Hgb Conc. 34.9 g/dL (32.0-36.0); Mean Corpuscular Volume 84.3 fL (80.0-100.0); Monocytes # (auto) 0.6 10 ^3/uL (0-1.3); Monocytes % (auto) 11.2 % (0.0-12.0); Neutrophils # (auto) 2.8 10 ^3/uL (1.6-8.6); Neutrophils % (auto) 52.6 % (37.0-80.0); Nucleated Red Blood Cells % 0.1 %; Platelet Count (auto) 168 10^3/uL (140-450); Red Blood Cells 3.91 10^6/uL (4.5-5.90); Red Cell Distribution Width 16.4 % (11.8-14.3); White Blood Cell 5.3 10^3/uL (4.4-10.8)
[2020-04-10] MEDS: ACCU-CHEK COMFORT CURVE STRIP VI SCH ×3 (06:00→11:55)
[2020-04-10 06:01] LABS: Calcium 8.6 mg/dL (8.5-10.1)
[2020-04-10 06:03] LABS: BUN/Creatinine Ratio 34.1
[2020-04-10] MEDS: LEVOTHYROXINE SODIUM 50 MCG TAB PO SCH (06:44)
[2020-04-10] MEDS: SUCRALFATE 1 GM/10 ML ORAL SUSP PO SCH ×2 (06:44→11:54)
[2020-04-10] MEDS: FUROSEMIDE 40 MG/4 ML VIAL IV SCH (06:47)
[2020-04-10] MEDS: CARVEDILOL 3.125 MG TAB PO SCH (07:19)
[2020-04-10] MEDS: Glucerna Carbsteady SHAKE Vanilla 8oz PO SCH ×2 (08:01→11:54)
[2020-04-10 09:00] VITALS: BP 108/65
[2020-04-10] MEDS: POTASSIUM CHL 10 Meq TABLET PO SCH (09:03)
[2020-04-10] MEDS: RANOLAZINE ER 500 MG TAB PO SCH (09:03)
[2020-04-10] MEDS: cefTRIAXone 1GM/50ML D5W 50 ML IV SCH (09:03)
[2020-04-10] MEDS: FAMOTIDINE 20 MG TAB PO SCH (09:03)
[2020-04-10] MEDS: PANTOPRAZOLE 40 MG TAB PO SCH (09:04)
[2020-04-10] MEDS: ASPirin 81 mg TAB PO SCH (09:04)
[2020-04-10] MEDS: MUPIROCIN 2% OINT 15gm or 22gm EACHNOSTRI SCH (09:04)
[2020-04-10] MEDS: CLOPIDOGREL BISULFATE 75 MG TAB PO SCH (09:04)
[2020-04-10] MEDS: DOCUSATE SOD 100 MG CAP PO SCH (09:04)
[2020-04-10] MEDS: NICOTINE 21MG/24 HR TOPICAL PATCH TD SCH (09:05)
[2020-04-10] MEDS: LISINOPRIL 20 MG TAB PO SCH (09:05)
[2020-04-10] MEDS: POLYETHYLENE GLYCOL 17 GM PWDR PO PRN (09:05)
[2020-04-10] MEDS: InsuLIN REG 1unit/0.01ml Soln (100units/ml) SC SCH ×3 (11:50→12:00)
[2020-04-10 13:00] VITALS: BP 120/72
[2020-04-10 13:11] VITALS: BP 100/72
--- NOTE | 2020-04-10 14:30 | NUR ---
Discharge instructions given as ordered. Encourage to follow up with (FOLLOW UP WITH CARDIOLOGY- DR YANG 04/15/20 AT 130PM [id number] [place] [address] [address]. FOLLOW UP WITH GI-DR. SANDRO Cartagena IN 2 WEEKS FOR COLONOSCOPY. FOLLOW UP WITH PCP IN 1-2 WEEKS MARGARITA JACOB ADDRESS : [address] [place], [address]) as instructed. All questions and concerns addressed. Patient verbalized understanding. Medication reconciliation form completed and copy given to patient. IV removed with catheter intact, pressure dressing applied. Telemetry unit returned to ICU. Patient taken to vehicle via wheelchair with all personal belongings, accompanied by staff and family member. No distress noted at time of departure.
== END 2020-04-10 14:30 | disposition home or self-care (01) | DRG 391 ==
LOC: EDUNIT# 17:57 → ER 17:57 → EDBD 17:57 → TELE 17:58 → TELE-WESTW 04-04 16:03
PROVIDERS: ADMIT Hospitalist; ATTEND Family Medicine
PROC: 0DB88ZX Excision of Small Intestine, Via Natural or Artificial Opening Endoscopic, Diagnostic (ICD-10-PCS; 2020-04-08)
PROC: 0D758ZZ Dilation of Esophagus, Via Natural or Artificial Opening Endoscopic (ICD-10-PCS; 2020-04-08)
PROC: 0DB68ZX Excision of Stomach, Via Natural or Artificial Opening Endoscopic, Diagnostic (ICD-10-PCS; principal; 2020-04-08 11:50)
DX: K20.9 Esophagitis, unspecified (principal); I50.43 Acute on chronic combined systolic (congestive) and diastolic (congestive) heart failure; N17.0 Acute kidney failure with tubular necrosis; I25.110 Atherosclerotic heart disease of native coronary artery with unstable angina pectoris; E44.0 Moderate protein-calorie malnutrition; I13.0 Hypertensive heart and chronic kidney disease with heart failure and stage 1 through stage 4 chronic kidney disease, or unspecified chronic kidney disease; N39.0 Urinary tract infection, site not specified; K29.80 Duodenitis without bleeding; K29.00 Acute gastritis without bleeding; E11.65 Type 2 diabetes mellitus with hyperglycemia; N18.9 Chronic kidney disease, unspecified; E11.22 Type 2 diabetes mellitus with diabetic chronic kidney disease; D63.8 Anemia in other chronic diseases classified elsewhere; R13.12 Dysphagia, oropharyngeal phase; F41.9 Anxiety disorder, unspecified; G47.00 Insomnia, unspecified; K22.4 Dyskinesia of esophagus; Z96.611 Presence of right artificial shoulder joint; K44.9 Diaphragmatic hernia without obstruction or gangrene; B95.7 Other staphylococcus as the cause of diseases classified elsewhere; B95.62 Methicillin resistant Staphylococcus aureus infection as the cause of diseases classified elsewhere; E03.9 Hypothyroidism, unspecified; E78.5 Hyperlipidemia, unspecified; F17.210 Nicotine dependence, cigarettes, uncomplicated; Z95.5 Presence of coronary angioplasty implant and graft; I25.2 Old myocardial infarction; Z79.4 Long term (current) use of insulin; Z88.8 Allergy status to other drugs, medicaments and biological substances; Z90.89 Acquired absence of other organs; Z82.3 Family history of stroke; Z79.899 Other long term (current) drug therapy; Z68.26 Body mass index [BMI] 26.0-26.9, adult
CPT/HCPCS: 36415; 43239; 70450; 71045; 74220; 80048; 80053; 80061; 81001; 82962; 83036; 83735; 83880; 84443; 84484; 85025; 85610; 85730; 87081; 87086; 87088; 87186; 93005; 93886; 96361; 96365; 96375; 96376; G0378; J0696; J1815; J2250; J2405

== ENCOUNTER 2020-04-12 01:35 | Inpatient (IN) | payer MEDICARE, MEDICAID ==
[~2020-04-12] VITALS: Ht 182.9 cm; Wt 87.8 kg
[~2020-04-12 01:35] MED LIST changes: +DIA5T PO; -FAM20T PO; +FAMO20TA10 PO; -FURO1TAB33 PO
[2020-04-12] MEDS ORDERED: PANTOPRAZOLE 40 MG TAB PO ONE (02:00)
[2020-04-12] MEDS ORDERED: ASPirin 81 mg TAB PO ONE (02:00)
[2020-04-12] MEDS ORDERED: LORazepam 0.5 MG TAB PO ONE (02:00)
[2020-04-12 02:24] LABS: Basophils # (auto) 0 10 ^3/uL (0-0.2); Basophils % (auto) 0.6 % (0.0-2.0); Eosinophils # (auto) 0.1 10 ^3/uL (0-0.8); Eosinophils % (auto) 2.9 % (0.0-7.0); Hematocrit 32.7 % (41.0-53.0); Hemoglobin 11.4 g/dL (13.5-17.5); Lymphocytes # (auto) 1.5 10 ^3/uL (0.4-5.4); Lymphocytes % (auto) 29.1 % (10.0-50.0); Mean Corpuscular Hemoglobin 28.7 pg (28.0-32.0); Mean Corpuscular Hgb Conc. 34.8 g/dL (32.0-36.0); Mean Corpuscular Volume 82.5 fL (80.0-100.0); Monocytes # (auto) 0.5 10 ^3/uL (0-1.3); Monocytes % (auto) 8.8 % (0.0-12.0); Neutrophils % (auto) 58.6 % (37.0-80.0); Nucleated Red Blood Cells % 0.1 %; Platelet Count (auto) 182 10^3/uL (140-450); Red Blood Cells 3.97 10^6/uL (4.5-5.90); Red Cell Distribution Width 16.1 % (11.8-14.3); White Blood Cell 5.2 10^3/uL (4.4-10.8)
[2020-04-12 02:38] LABS: INR 1.05 (0.9-1.15); Partial Thromboplastin Time 28.8 sec (23.64-32.05)
[2020-04-12 02:41] LABS: Alanine Aminotransferase 23 U/L (16-61); Albumin 3.3 g/dL (3.4-5.0); Anion Gap 8 (5-15); Aspartate Aminotransferase 19 U/L (15-37); BUN/Creatinine Ratio 25.8; Blood Urea Nitrogen 23 mg/dL (7-18); Calcium 8.6 mg/dL (8.5-10.1); Carbon Dioxide 27 mmol/L (21-32); Chloride 104 mmol/L (98-107); GFR African American 110 mL/min; GFR Non-African American 91 mL/min; Glucose 154 mg/dL (74-106); Magnesium 2.3 mg/dL (1.6-2.6); Potassium 3.8 mmol/L (3.5-5.1); Sodium 139 mmol/L (136-145)
[2020-04-12 02:46] LABS: Alkaline Phosphatase 109 U/L (45-117); Bilirubin, Total 0.9 mg/dL (0.2-1.0); Total Protein 7.7 g/dL (6.4-8.2)
[2020-04-12] MEDS ORDERED: IOHEXOL 350 MG/ML 100ML IJ ONE (03:47)
[2020-04-12] MEDS ORDERED: NITROGLYCERIN 0.4MG/HR TOPICAL PATCH TD ONE (05:30)
[2020-04-12] MEDS ORDERED: ONDANSETRON HCL 4 MG/2 ML VIAL IV ONE (05:30)
[2020-04-12] MEDS ORDERED: MORPHINE SULFATE 4 MG/ML SYR/VIAL IV ONE (05:30)
[2020-04-12] MEDS ORDERED: FUROSEMIDE 20 MG TAB PO PRN (05:45)
[2020-04-12] MEDS ORDERED: diazePAM 5 MG TAB PO PRN (05:45)
[2020-04-12] MEDS ORDERED: NITROGLYCERIN 0.4 MG SL TAB SL PRN (05:45)
[2020-04-12] MEDS ORDERED: PATIENTS OWN MEDICATION (Zolpidem Tartrate (Ambien) 1 TAB) PO PRN (05:45)
[2020-04-12] MEDS: SODIUM CHLORIDE 0.9% 1,000 ML IV SCH ×2 (06:05→18:59)
[2020-04-12] MEDS: LEVOTHYROXINE SODIUM 25 MCG TAB PO SCH (06:38)
[2020-04-12 07:12] LABS: Basophils # (auto) 0 10 ^3/uL (0-0.2); Basophils % (auto) 0.5 % (0.0-2.0); Eosinophils # (auto) 0.1 10 ^3/uL (0-0.8); Hematocrit 32.9 % (41.0-53.0); Hemoglobin 11.5 g/dL (13.5-17.5); Lymphocytes # (auto) 1.5 10 ^3/uL (0.4-5.4); Lymphocytes % (auto) 31.2 % (10.0-50.0); Mean Corpuscular Hemoglobin 29.3 pg (28.0-32.0); Mean Corpuscular Hgb Conc. 34.9 g/dL (32.0-36.0); Mean Corpuscular Volume 84.2 fL (80.0-100.0); Monocytes # (auto) 0.4 10 ^3/uL (0-1.3); Monocytes % (auto) 7.8 % (0.0-12.0); Neutrophils # (auto) 2.8 10 ^3/uL (1.6-8.6); Neutrophils % (auto) 57.5 % (37.0-80.0); Nucleated Red Blood Cells % 0.1 %; Platelet Count (auto) 162 10^3/uL (140-450); Red Blood Cells 3.91 10^6/uL (4.5-5.90); White Blood Cell 4.8 10^3/uL (4.4-10.8)
[2020-04-12] MEDS ORDERED: ZOLPIDEM TARTRATE 5 MG TAB PO PRN (07:15)
[2020-04-12 07:32] LABS: Potassium 3.7 mmol/L (3.5-5.1)
[2020-04-12 07:47] LABS: BUN/Creatinine Ratio 27.8; Calcium 8.7 mg/dL (8.5-10.1)
[2020-04-12] MEDS: MORPHINE SULF INJ 2 MG/ML SYRINGE 1ML IV PRN ×5 (07:52→22:05)
[2020-04-12] MEDS: ASPirin 81 mg TAB PO SCH (09:44)
[2020-04-12] MEDS: CLOPIDOGREL BISULFATE 75 MG TAB PO SCH (09:44)
[2020-04-12] MEDS: POTASSIUM CHL 10 Meq TABLET PO SCH (09:45)
[2020-04-12] MEDS: LISINOPRIL 20 MG TAB PO SCH (09:47)
[2020-04-12] MEDS: CITALOPRAM HYDROBR 20 MG TAB PO SCH (09:48)
[2020-04-12] MEDS: CARVEDILOL 12.5 MG TAB PO SCH ×2 (09:48→21:02)
[2020-04-12] MEDS: NICOTINE 21MG/24 HR TOPICAL PATCH TD SCH (09:49)
[2020-04-12] MEDS ORDERED: ASPirin 81 mg TAB PO SCH (10:00)
[2020-04-12] MEDS ORDERED: PATIENTS OWN MEDICATION (Potassium Chloride (Klor-Con M10) 1 TAB) PO SCH (10:00)
[2020-04-12] MEDS ORDERED: CLOPIDOGREL BISULFATE 75 MG TAB PO SCH (10:00)
[2020-04-12] MEDS ORDERED: ESCITALOPRAM OXALATE 5 MG PO SCH (10:00)
[2020-04-12] MEDS ORDERED: PATIENTS OWN MEDICATION (Atorvastatin Calcium 1 TAB) PO SCH (10:00)
[2020-04-12] MEDS ORDERED: FAMOTIDINE 20 MG TAB PO SCH (10:00)
[2020-04-12] MEDS ORDERED: RANOLAZINE ER 500 MG TAB PO ONE (13:00)
[2020-04-12] MEDS: PANTOPRAZOLE 40 MG TAB PO SCH ×2 (13:12→21:00)
[2020-04-12] MEDS ORDERED: POLYETHYLENE GLYCOL 17 GM PWDR PO ONE (13:15)
[2020-04-12 14:40] VITALS: BP 126/74
--- NOTE | 2020-04-12 14:40 | NUR ---
PATIENT ARRIVED TO ROOM FROM ER VIA WHEELCHAIR. PATIENT ORIENTED TO ROOM, CALL LIGHT PLACED BEDSIDE, 2X SIDE RAILS UP WITH BED IN LOCKED AND LOWEST POSITION. NO COMPLAINTS OF PAIN OR DISCOMFORT AT THIS TIME. VS 98.9, 64, 20, 97%, 126/74. WILL CONTINUE TO MONITOR Q1H AND PRN
--- NOTE | 2020-04-12 16:20 | NUR ---
AMA TO SMOKE DORA LYNN states he wants to leave the floor Against Medical Advice (AMA) to go outside and smoke. Patient encouraged to stay on floor and not smoke. Patient advised of the risks and benefits of leaving AMA. Patient verbalized understanding and signed required AMA form.
[2020-04-12 16:29] VITALS: BP 126/74
--- NOTE | 2020-04-12 16:40 | NUR ---
PATIENT REPORTS CHEST PAIN 7/10. MEDICATION ADMINISTERED AND WILL CONTINUE TO MONITOR
[2020-04-12] MEDS: SUCRALFATE 1 GM/10 ML ORAL SUSP PO SCH ×2 (16:43→21:00)
--- NOTE | 2020-04-12 17:12 | NUR ---
CHEST PAIN REASSESSMENT PATIENTS PAIN LEVEL TO CHEST IS NOW 5/10. PER PATIENT THIS PAIN LEVEL IS TOLERABLE AND DOES NOT WANT ANY FURTHER PAIN MEDICATION. WILL CONTINUE TO MONITOR
--- NOTE | 2020-04-12 20:04 | NUR ---
HOSPITALIST PAGED PATIENT REPORTING CHEST PAIN RATED 7/10.
[2020-04-12] MEDS: ATORVASTATIN 20 MG TAB PO SCH (21:00)
[2020-04-12] MEDS: RANOLAZINE ER 500 MG TAB PO SCH (21:00)
[2020-04-12 22:00] VITALS: BP 147/75
[2020-04-12] MEDS: ZOLPIDEM TARTRATE 5 MG TAB PO PRN (22:05)
[2020-04-12 22:50] VITALS: BP 134/88
[2020-04-12 23:50] VITALS: BP 121/73
[2020-04-13] VITALS (9 sets, daily range): BP systolic 101–165; BP diastolic 75–87
[2020-04-13] MEDS: LEVOTHYROXINE SODIUM 25 MCG TAB PO SCH (06:00)
[2020-04-13] MEDS: SUCRALFATE 1 GM/10 ML ORAL SUSP PO SCH ×4 (06:00→22:39)
[2020-04-13] MEDS: SODIUM CHLORIDE 0.9% 1,000 ML IV SCH ×2 (06:01→21:39)
[2020-04-13] MEDS: MORPHINE SULF INJ 2 MG/ML SYRINGE 1ML IV PRN ×5 (06:04→22:57)
--- NOTE | 2020-04-13 07:48 | NUR ---
Opening Note Assumed pt care from NOC RN. Pt is a/ox4 with no s/s of distress or SOB. Pt is currently laying in bed with no complaints at this time. Discussed POC with pt; pt verbalized understanding. Safety measures maintained with call light within reach, bed in lowest position and side rails up. Will continue to monitor for changes.
[2020-04-13] MEDS: LISINOPRIL 20 MG TAB PO SCH (09:36)
[2020-04-13] MEDS: CLOPIDOGREL BISULFATE 75 MG TAB PO SCH (09:36)
[2020-04-13] MEDS: CITALOPRAM HYDROBR 20 MG TAB PO SCH (09:36)
[2020-04-13] MEDS: PANTOPRAZOLE 40 MG TAB PO SCH ×2 (09:36→22:39)
[2020-04-13] MEDS: RANOLAZINE ER 500 MG TAB PO SCH ×2 (09:36→22:39)
[2020-04-13] MEDS: ASPirin 81 mg TAB PO SCH (09:36)
[2020-04-13] MEDS: NICOTINE 21MG/24 HR TOPICAL PATCH TD SCH (09:37)
[2020-04-13] MEDS: POTASSIUM CHL 10 Meq TABLET PO SCH (09:37)
[2020-04-13] MEDS: CARVEDILOL 12.5 MG TAB PO SCH ×2 (09:37→22:40)
[2020-04-13] MEDS: POLYETHYLENE GLYCOL 17 GM PWDR PO SCH (09:37)
--- NOTE | 2020-04-13 09:40 | NUR ---
Elevated BP Reported BP of 174/82 with a HR of 65 reported. Provided scheduled BP meds. Will reassess. Pt states he is in some pain, mild chest discomfort at 5/10. Will follow CP protocol. Addendum: 04/13/20 at 0950 by QUINCY LOPEZ RN RN Administered pain meds for CP per protocol. BP before admission of medication is 157/85 HR 65. Pt states pain is 8/10. Located in his chest, radiating down to his legs. Will continue to monitor. Addendum: 04/13/20 at 1021 by QUINCY LOPEZ RN RN Pt states that his pain is 1/10. Current BP is 151/79 with a HR of 60. Will continue to monitor.
--- NOTE | 2020-04-13 10:45 | NUR ---
WOUND CARE NOTE: WOUND PHOTOGRAPH TAKEN OF INTRAGLUTEAL FOLD SCAR BY BEDSIDE NURSE FOR REFERENCE. PATIENT RECENTLY ADMITTED TO [facility] WITH DIAGNOSIS OF UNSTABLE ANGINA, HISTORY OF DIABETES MELLITUS,HYPERLIPIDEMIA. CURRENT KAM SCORE IS 22. PATIENT AMBULATES, CAN SELF TURN/REPOSITION SELF IN BED. PATIENT IS NOTED TO HAVE AN INTACT SCAR TO THE INTRAGLUTEAL FOLD OF THE SACRUM, SKIN INTACT, NON DRAINING. NO OTHER SKIN INTEGRITY ISSUES. RECOMMEND: BID/PRN APPLICATION MOISTURE BARRIER CREAM, OPTIFOAM GENTLE DRESSING TO SACRAL SCAR, SKIN/WOUND CARE PLAN. NO FURTHER WOUND CARE MONITORING NEEDED.
[2020-04-13 10:48] LABS: Basophils # (auto) 0 10 ^3/uL (0-0.2); Basophils % (auto) 0.5 % (0.0-2.0); Eosinophils # (auto) 0.1 10 ^3/uL (0-0.8); Eosinophils % (auto) 3.3 % (0.0-7.0); Hematocrit 30.4 % (41.0-53.0); Hemoglobin 10.6 g/dL (13.5-17.5); Lymphocytes # (auto) 0.9 10 ^3/uL (0.4-5.4); Lymphocytes % (auto) 21.2 % (10.0-50.0); Mean Corpuscular Hemoglobin 29.4 pg (28.0-32.0); Mean Corpuscular Hgb Conc. 34.9 g/dL (32.0-36.0); Mean Corpuscular Volume 84.3 fL (80.0-100.0); Monocytes # (auto) 0.3 10 ^3/uL (0-1.3); Neutrophils # (auto) 2.9 10 ^3/uL (1.6-8.6); Nucleated Red Blood Cells % 0.1 %; Platelet Count (auto) 146 10^3/uL (140-450); Red Cell Distribution Width 15.9 % (11.8-14.3); White Blood Cell 4.3 10^3/uL (4.4-10.8)
[2020-04-13 11:10] LABS: Anion Gap 3 (5-15); BUN/Creatinine Ratio 27.8; Blood Urea Nitrogen 25 mg/dL (7-18); Calcium 8.3 mg/dL (8.5-10.1); Carbon Dioxide 28 mmol/L (21-32); Chloride 104 mmol/L (98-107); GFR African American 108 mL/min; GFR Non-African American 89 mL/min; Glucose 281 mg/dL (74-106); Potassium 4.3 mmol/L (3.5-5.1); Sodium 135 mmol/L (136-145)
--- NOTE | 2020-04-13 13:10 | NUR ---
Pt C/O Chest Discomfort Pt c/o chest discomfort; 06/23. Pt states that it is dull in nature, radiates down to legs. Pt further states that it feels "prickly". At this time, pt is currently sitting in chair. BP is 156/87 with a HR of 66. Will implement CP protocol and continue to monitor. Addendum: 04/13/20 at 1332 by QUINCY LOPEZ RN RN Reassessment Pt states that his CP has resolved. Current BP is 142/79 with a HR of 67. Will continue to monitor and notify MD upon rounding.
--- NOTE | 2020-04-13 13:46 | NUR ---
Dr Avendano at Bedside MD to see pt. Discussed POC with pt. MD stated that he will order a couple of new scans. Will implement and continue to monitor.
--- NOTE | 2020-04-13 13:53 | NUR ---
Pt Off Unit to Smoke Pt ambulated off unit to smoke. Signed AMA in chart.
[2020-04-13] MEDS ORDERED: HYDROcodone-ACET 7.5/325MG TAB PO PRN (14:00)
--- NOTE | 2020-04-13 15:31 | NUR ---
UA Sent to Lab
--- NOTE | 2020-04-13 15:54 | NUR ---
Micro; Positive MRSA Nares Informed by micro that pt has tested positive for MRSA in nares. Will continue to monitor and notify oxyacetylene welder.
[2020-04-13 16:07] LABS: Urine Bacteria NONE SEEN /hpf (None Seen); Urine Blood Negative /uL (Negative); Urine Mucus FEW (None Seen); Urine Specific Gravity 1.026 (1.001-1.035); Urine WBC <1 /hpf (0 - 3)
--- NOTE | 2020-04-13 16:46 | NUR ---
Pain/Discomfort Pt states that he is experiencing mild discomfort, similar in nature to previous expressions of pain; chest discomfort that radiated to legs, prickly in nature. Discussed available [place], pt states that "norco doesnt work on me". Pt states only morphine works. Provided pt education on opioid medications such as morphine. Pt at this time states he will just wait for now. Will continue to monitor.
--- NOTE | 2020-04-13 17:48 | NUR ---
Elevated BP/Pain BP of 178/80 with a HR of 68 reported. Pt states that he is experiencing chest discomfort 05/23; dull in nature that radiates down to L leg where it is felt to be "prickly" in nature. Provided pt with CP pain medication per CP protocol; pt states that he does not want to "try norco". Will continue to monitor and reassess. Addendum: 04/13/20 at 1810 by QUINCY LOPEZ RN RN Reassessed BP, Currently 132/81 with a HR of 64. Pt states that his pain is at a 2. Will continue to monitor.
[2020-04-13] MEDS: ZOLPIDEM TARTRATE 5 MG TAB PO PRN (22:39)
[2020-04-13] MEDS: ATORVASTATIN 20 MG TAB PO SCH (22:56)
[2020-04-14] MEDS: MORPHINE SULF INJ 2 MG/ML SYRINGE 1ML IV PRN (04:00)
--- NOTE | 2020-04-14 04:04 | NUR ---
pain patient complains of sharp pain in chest that then radiates down to left leg. medication given, will continue to monitor.
[2020-04-14 05:00] VITALS: BP 149/77
[2020-04-14] MEDS: SUCRALFATE 1 GM/10 ML ORAL SUSP PO SCH ×2 (06:31→11:42)
[2020-04-14] MEDS: LEVOTHYROXINE SODIUM 25 MCG TAB PO SCH (06:31)
--- NOTE | 2020-04-14 07:49 | NUR ---
Opening Note Assumed pt care from NOC RN. Pt is a/ox4 with no s/s of distress or SOB. Pt is currently laying upright in bed with c/o pain to chest 8/10 dull in nature and radiates to L leg; prickly in nature in leg. Discussed available PO pain medication and purpose of PRN IV pain medication; pt further provided education on pain medication. Pt verbalized understanding. Safety measures maintained with call light within reach, bed in lowest position and side rails up. Will continue to monitor.
[2020-04-14] MEDS: CLOPIDOGREL BISULFATE 75 MG TAB PO SCH (09:22)
[2020-04-14] MEDS: ASPirin 81 mg TAB PO SCH (09:22)
[2020-04-14] MEDS: CITALOPRAM HYDROBR 20 MG TAB PO SCH (09:23)
[2020-04-14] MEDS: RANOLAZINE ER 500 MG TAB PO SCH (09:24)
[2020-04-14] MEDS: CARVEDILOL 12.5 MG TAB PO SCH (09:24)
[2020-04-14] MEDS: PANTOPRAZOLE 40 MG TAB PO SCH (09:25)
[2020-04-14] MEDS: POLYETHYLENE GLYCOL 17 GM PWDR PO SCH (09:25)
[2020-04-14] MEDS: POTASSIUM CHL 10 Meq TABLET PO SCH (09:25)
[2020-04-14] MEDS: LISINOPRIL 20 MG TAB PO SCH (09:26)
[2020-04-14] MEDS: NICOTINE 21MG/24 HR TOPICAL PATCH TD SCH (09:27)
[2020-04-14 09:28] VITALS: BP 146/83
--- NOTE | 2020-04-14 09:30 | NUR ---
Pt C/O Chest Discomfort Pt repeatedly c/o chest discomfort, dull in nature radiating down to left leg where it is felt to be "prickly". Pt at this time requests for "my pain shot". Provided pt with education on the available PRN pain medication for CP. Pt states " I just want one shot this morning, then I will be good". Educated pt on his current chronic CP. Pt states that he understands but is requesting that we "just give [him] the pain medication". Further offered pt PRN PO pain medication, pt states "that won't help". Pt requests that the MD come to speak with him so he can get his "pain shot". Will continue to monitor and notify MD.
--- NOTE | 2020-04-14 09:55 | NUR ---
AT BEDSIDE DR. NEWMAN AT BEDSIDE. POC DISCUSSED WITH PT. EXPLAINED TO PT THAT THE PAIN IS SCIATIC RATHER THAN CARDIAC RELATED. PLAN TO DISCHARGE TOMORROW. ORDERS RECEIVED AND CARRIED OUT.
[2020-04-14] MEDS ORDERED: MORPHINE SULF INJ 2 MG/ML SYRINGE 1ML IV PRN (10:15)
[2020-04-14 10:41] VITALS: BP 146/83
[2020-04-14] MEDS: SODIUM CHLORIDE 0.9% 1,000 ML IV SCH (10:59)
--- NOTE | 2020-04-14 12:22 | NUR ---
D/C Photo Taken for Reference Photo to pt's backside take for reference.
--- NOTE | 2020-04-14 12:35 | NUR ---
Discharge Discharge instructions given as ordered. Encourage to follow up with PMD as instructed. All questions and concerns addressed. Patient verbalized understanding. Medication reconciliation form completed and copy given to patient. IV removed with catheter intact, pressure dressing applied. Telemetry unit returned to ICU. Patient stated we wanted to walk down to hospital lobby to wait for family pickling drum operator. No distress noted at time of departure.
[2020-04-14 12:45] VITALS: BP 147/87
[2020-05-12] MEDS ORDERED: SUCR1TAB22 PO (14:22)
== END 2020-04-14 13:32 | disposition home or self-care (01) | DRG 291 ==
LOC: ER 01:35 → EDBD 01:35 → TELE 01:36 → TELE-EAST 14:40
PROVIDERS: ADMIT Hospitalist; ATTEND Family Medicine
DX: I13.0 Hypertensive heart and chronic kidney disease with heart failure and stage 1 through stage 4 chronic kidney disease, or unspecified chronic kidney disease (principal); I50.43 Acute on chronic combined systolic (congestive) and diastolic (congestive) heart failure; N17.0 Acute kidney failure with tubular necrosis; E44.1 Mild protein-calorie malnutrition; I25.110 Atherosclerotic heart disease of native coronary artery with unstable angina pectoris; E78.5 Hyperlipidemia, unspecified; E11.22 Type 2 diabetes mellitus with diabetic chronic kidney disease; K29.70 Gastritis, unspecified, without bleeding; E03.9 Hypothyroidism, unspecified; F17.210 Nicotine dependence, cigarettes, uncomplicated; M54.41 Lumbago with sciatica, right side; K21.9 Gastro-esophageal reflux disease without esophagitis; M48.00 Spinal stenosis, site unspecified; M54.42 Lumbago with sciatica, left side; N18.9 Chronic kidney disease, unspecified; Z82.3 Family history of stroke; Z95.5 Presence of coronary angioplasty implant and graft; I25.2 Old myocardial infarction; Z79.4 Long term (current) use of insulin; Z68.23 Body mass index [BMI] 23.0-23.9, adult
CPT/HCPCS: 36415; 71045; 71275; 72131; 80048; 80053; 80061; 81001; 83735; 83880; 84484; 85025; 85379; 85610; 85730; 87081; 93005; 93925; 93970; G0378; J2405

== ENCOUNTER 2020-04-19 10:08 | Inpatient (IN) | payer MEDICARE, MEDICAID ==
[~2020-04-19] VITALS: Ht 185.4 cm; Wt 83.0 kg
[2020-04-19 10:30] LABS: Basophils # (auto) 0 10 ^3/uL (0-0.2); Basophils % (auto) 0.5 % (0.0-2.0); Eosinophils # (auto) 0 10 ^3/uL (0-0.8); Eosinophils % (auto) 0.7 % (0.0-7.0); Hemoglobin 12.8 g/dL (13.5-17.5); Lymphocytes # (auto) 1.1 10 ^3/uL (0.4-5.4); Lymphocytes % (auto) 18.8 % (10.0-50.0); Mean Corpuscular Hemoglobin 29.1 pg (28.0-32.0); Mean Corpuscular Hgb Conc. 34.7 g/dL (32.0-36.0); Mean Corpuscular Volume 83.7 fL (80.0-100.0); Monocytes # (auto) 0.3 10 ^3/uL (0-1.3); Monocytes % (auto) 5.6 % (0.0-12.0); Neutrophils # (auto) 4.2 10 ^3/uL (1.6-8.6); Neutrophils % (auto) 74.4 % (37.0-80.0); Nucleated Red Blood Cells % 0.1 %; Platelet Count (auto) 171 10^3/uL (140-450); Red Blood Cells 4.42 10^6/uL (4.5-5.90); Red Cell Distribution Width 16.4 % (11.8-14.3); White Blood Cell 5.7 10^3/uL (4.4-10.8)
[2020-04-19] MEDS ORDERED: ONDANSETRON HCL 4 MG/2 ML VIAL IV ONE (10:30)
[2020-04-19] MEDS ORDERED: MORPHINE SULFATE 4 MG/ML SYR/VIAL IV ONE (10:30)
[2020-04-19 10:48] LABS: Albumin 3.4 g/dL (3.4-5.0); Anion Gap 7 (5-15); Blood Urea Nitrogen 14 mg/dL (7-18); Calcium 8.6 mg/dL (8.5-10.1); Carbon Dioxide 21 mmol/L (21-32); Chloride 110 mmol/L (98-107); Glucose 224 mg/dL (74-106); Potassium 3.2 mmol/L (3.5-5.1); Sodium 138 mmol/L (136-145)
[2020-04-19 10:54] LABS: Alanine Aminotransferase 18 U/L (16-61); Alkaline Phosphatase 101 U/L (45-117); Aspartate Aminotransferase 12 U/L (15-37); BUN/Creatinine Ratio 17.3; Bilirubin, Total 0.6 mg/dL (0.2-1.0); GFR African American 122 mL/min; GFR Non-African American 101 mL/min; INR 1.06 (0.9-1.15); Partial Thromboplastin Time 26.8 sec (23.64-32.05); Total Protein 7.6 g/dL (6.4-8.2)
[2020-04-19] MEDS ORDERED: CLOPIDOGREL 300 MG TAB PO ONE (12:00)
[2020-04-19] MEDS ORDERED: NITROGLYCERIN 0.4 MG SL TAB SL PRN (12:00)
[2020-04-19] MEDS ORDERED: ALUM & MAG HYDROX-SIMETH LIQ(MAALOX) 30 ML PO PRN (12:00)
[2020-04-19] MEDS ORDERED: MORPHINE SULF INJ 2 MG/ML SYRINGE 1ML IV PRN (12:00)
[2020-04-19] MEDS ORDERED: ASPirin 325 MG TAB PO ONE (12:00)
[2020-04-19] MEDS ORDERED: HYDROcodone-ACET 5/325MG TAB PO PRN (12:00)
[2020-04-19] MEDS ORDERED: ATORVASTATIN 20 MG TAB PO ONE (12:00)
[2020-04-19] MEDS ORDERED: ONDANSETRON HCL 4 MG/2 ML VIAL IV PRN (12:00)
[2020-04-19] MEDS ORDERED: POTASSIUM CHL 20MEQ/100ML 100 ML IV ONE (12:00)
[2020-04-19] MEDS ORDERED: METOPROLOL SUCCINATE XL 50 MG TAB PO ONE (12:00)
[2020-04-19] MEDS ORDERED: DOCUSATE SOD 100 MG CAP PO PRN (12:00)
[2020-04-19] MEDS ORDERED: ACETAMINOPHEN 325 MG TAB PO PRN (12:00)
[2020-04-19] MEDS ORDERED: LORazepam 0.5 MG TAB PO PRN (12:00)
[2020-04-19] MEDS ORDERED: FUROSEMIDE 20 MG/2 ML VIAL IV ONE ×2 (12:15→12:30)
[2020-04-19] MEDS ORDERED: LORazepam 2MG/ML-1ML VIAL IV PRN (12:30)
[2020-04-19] MEDS: SOD CHL 0.45% 1,000 ML IV SCH (12:37)
[2020-04-19] MEDS: IPRATROPIUM BROM 0.5 MG/2.5ML INH SOL NEB SCH ×3 (13:31→21:17)
[2020-04-19] MEDS: ALBUTEROL SULF 2.5 MG/0.5ML(0.5%) NEB SOLN NEB SCH ×3 (13:31→21:17)
[2020-04-19 13:43] LABS: Cholesterol 140 mg/dL (< 200)
[2020-04-19] MEDS: methylPREDNISolone SOD SUCC 40 MG/ML VL IV SCH ×2 (13:46→22:00)
[2020-04-19] MEDS: GABAPENTIN 300 MG CAP PO SCH ×2 (13:46→22:00)
[2020-04-19 13:47] LABS: HDL Cholesterol 47 mg/dL (40-59); LDL Cholesterol 83 mg/dL (< 100); Triglycerides 106 mg/dL (< 150)
[2020-04-19 13:48] VITALS: BP 182/91
[2020-04-19 13:49] LABS: Urine Bacteria NONE SEEN /hpf (None Seen); Urine Blood Negative /uL (Negative); Urine Hyaline Cast FEW /lpf (0 - 2); Urine Mucus FEW (None Seen); Urine Specific Gravity 1.008 (1.001-1.035); Urine WBC <1 /hpf (0 - 3)
[2020-04-19] MEDS ORDERED: LORA-655 PO (13:53)
[2020-04-19] MEDS: BUPRENORPHINE SL SCH ×2 (14:00→23:00)
[2020-04-19] MEDS: NALOXONE SL SCH ×2 (14:00→23:00)
[2020-04-19] MEDS ORDERED: LABETALOL HCL 5 MG/ML 4ML SYRINGE IV ONE (14:15)
[2020-04-19] MEDS ORDERED: cloNIDine HCL 0.1 MG TAB PO PRN (14:15)
[2020-04-19] MEDS ORDERED: DEXTROSE (50%) 50ML SYRG IV PRN (14:15)
[2020-04-19] MEDS ORDERED: LISINOPRIL 20 MG TAB PO ONE (14:15)
[2020-04-19] MEDS: DOXYCYCLINE 100MG/250ML 250 ML IV SCH (14:21)
[2020-04-19 15:17] LABS: Alcohol, Urine < 3.0 mg/dL (0-10)
[2020-04-19 15:18] LABS: Amphetamine Screen, Urine NEGATIVE (NEGATIVE); Barbiturate Scree,Urine NEGATIVE (NEGATIVE); Benzodiazephine Screen, Urine NEGATIVE (NEGATIVE); Cannabinoid Screen, Urine NEGATIVE (NEGATIVE); Cocaine Screen, Urine NEGATIVE (NEGATIVE); Opiate Scree,Urine NEGATIVE (NEGATIVE); Phencyclidine Screen, Urine NEGATIVE (NEGATIVE)
[2020-04-19] MEDS: MORPHINE SULF INJ 2 MG/ML SYRINGE 1ML IV PRN ×2 (16:31→20:36)
[2020-04-19] MEDS: InsuLIN REG 1unit/0.01ml Soln (100units/ml) SC SCH ×2 (17:18→22:00)
[2020-04-19] MEDS: ACCU-CHEK COMFORT CURVE STRIP VI SCH ×2 (17:19→22:00)
[2020-04-19] MEDS: FUROSEMIDE 20 MG/2 ML VIAL IV SCH (18:10)
--- NOTE | 2020-04-19 19:41 | NUR ---
RT NOTE: PT REFUSED SCHEDULED MED NEB TX AT THIS TIME. PT ON ROOM AIR SPO2 98% HR 76, RR 16. BS CLEAR. PT STATED HE DOESN'T NEED TX AT THIS TIME AND WILL CALL IF NEEDED. NO DISTRESS NOTED
--- NOTE | 2020-04-19 20:59 | NUR ---
Telemetry admit from ER LEAHDORA admitted to Telemetry unit: no SBAR received. Patient oriented by KRISTIN DIETRICH, primary RN, unit, room, bed, and unit policies regarding patient care and visiting hours. Patient now on continuous telemetry monitoring, tele box #34 and telemetry reading on arrival to unit is SB 52. Patient placed on bedside oxygen, weighed by bedscale and encouraged to call if he needs something. All questions and concerns addressed, patient verbalized understanding; requesting Ambien for sleep stating "nothing else works". Bed low with HOB in Semi-Mejia's position. Call light in his lap. Pt states pain is down to 7/10 since received injection in ER.
--- NOTE | 2020-04-19 21:56 | NUR ---
Hospitalist paged to inquire re. Villalobos and use of buprenorphine with low HR.
[2020-04-19 22:00] VITALS: BP 145/75
[2020-04-19] MEDS: RANOLAZINE ER 500 MG TAB PO SCH (22:00)
[2020-04-19] MEDS: CARVEDILOL 12.5 MG TAB PO SCH (22:00)
[2020-04-19] MEDS: ATORVASTATIN 20 MG TAB PO SCH (22:00)
--- NOTE | 2020-04-19 22:43 | NUR ---
Rashard Cruz, RN, CRYSTAL FLAT GRINDER, hospitalist returned page. Reported pt's HR now 42 - 45, BP 145/75. Order received to hold Bupranorphine and Coreg and no Ambien to be ordered tonight.
--- NOTE | 2020-04-19 23:41 | NUR ---
HR 38 per tele; this RN responded immediately to pt's room finding him quietly watching television. A&O x4. Denies lightheadedness, weakness. States he always has chest pain. Pt refused most of his 2199 medications because "I don't take those," or "it never works ( neurontin). Given sandwich and cranberry juice per pt's request. Pt refusing MRSA swab stating, "That caused a lot of trouble for me last [admission]. They said I would not have to do it again." Addendum: 04/19/20 at 2348 by KRISTIN DIETRICH RN When this RN responded to room, HR 40 for full minite of apical auscultation and bp 15/73 when rechecked 178/78. Pt stated that's good, [It is usually higher than tht} he added.
[2020-04-20] MEDS ORDERED: ALBUTEROL SULF 2.5 MG/0.5ML(0.5%) NEB SOLN NEB PRN (02:00)
[2020-04-20] MEDS ORDERED: IPRATROPIUM BROM 0.5 MG/2.5ML INH SOL NEB PRN (02:00)
[2020-04-20] MEDS: DOXYCYCLINE 100MG/250ML 250 ML IV SCH ×2 (02:24→13:26)
[2020-04-20] MEDS: MORPHINE SULF INJ 2 MG/ML SYRINGE 1ML IV PRN ×4 (04:28→20:19)
--- NOTE | 2020-04-20 04:31 | NUR ---
Pt awake and HR in 60s - 70s. Asking for med for pain; given morphine after zofran. Pt settling back to rest, expressing thanks.
[2020-04-20 05:00] VITALS: BP 164/68
[2020-04-20] MEDS: BUPRENORPHINE SL SCH ×3 (06:00→22:00)
[2020-04-20] MEDS: ACCU-CHEK COMFORT CURVE STRIP VI SCH ×4 (06:00→22:30)
[2020-04-20] MEDS: FUROSEMIDE 20 MG/2 ML VIAL IV SCH ×2 (06:00→18:35)
[2020-04-20] MEDS: GABAPENTIN 300 MG CAP PO SCH ×3 (06:00→22:00)
[2020-04-20] MEDS: methylPREDNISolone SOD SUCC 40 MG/ML VL IV SCH ×3 (06:00→22:00)
[2020-04-20] MEDS: NALOXONE SL SCH ×3 (06:00→22:00)
--- NOTE | 2020-04-20 06:18 | NUR ---
Lasix sched for 0600 2/2 pt's HR again being in low 40s. Pt sleeping, HR 41.
[2020-04-20] MEDS: InsuLIN REG 1unit/0.01ml Soln (100units/ml) SC SCH ×4 (06:35→22:30)
[2020-04-20] MEDS: LEVOTHYROXINE SODIUM 25 MCG TAB PO SCH (06:38)
[2020-04-20 07:16] LABS: Basophils # (auto) 0 10 ^3/uL (0-0.2); Basophils % (auto) 0.2 % (0.0-2.0); Eosinophils # (auto) 0.1 10 ^3/uL (0-0.8); Eosinophils % (auto) 2.4 % (0.0-7.0); Hematocrit 33.8 % (41.0-53.0); Hemoglobin 11.7 g/dL (13.5-17.5); Lymphocytes # (auto) 1.6 10 ^3/uL (0.4-5.4); Lymphocytes % (auto) 25.4 % (10.0-50.0); Mean Corpuscular Hemoglobin 30.5 pg (28.0-32.0); Mean Corpuscular Hgb Conc. 34.5 g/dL (32.0-36.0); Mean Corpuscular Volume 88.3 fL (80.0-100.0); Monocytes # (auto) 0.5 10 ^3/uL (0-1.3); Monocytes % (auto) 8.6 % (0.0-12.0); Neutrophils # (auto) 3.9 10 ^3/uL (1.6-8.6); Neutrophils % (auto) 63.4 % (37.0-80.0); Platelet Count (auto) 158 10^3/uL (140-450); Red Blood Cells 3.83 10^6/uL (4.5-5.90); Red Cell Distribution Width 16.8 % (11.8-14.3); White Blood Cell 6.2 10^3/uL (4.4-10.8)
[2020-04-20 07:26] LABS: INR 1.07 (0.9-1.15); Partial Thromboplastin Time 26.2 sec (23.64-32.05)
[2020-04-20 07:35] LABS: Albumin 3.1 g/dL (3.4-5.0); Anion Gap 5 (5-15); Blood Urea Nitrogen 20 mg/dL (7-18); Calcium 8.4 mg/dL (8.5-10.1); Carbon Dioxide 27 mmol/L (21-32); Chloride 107 mmol/L (98-107); Glucose 201 mg/dL (74-106); Magnesium 2.2 mg/dL (1.6-2.6); Potassium 3.6 mmol/L (3.5-5.1); Sodium 139 mmol/L (136-145)
[2020-04-20 07:41] LABS: Alanine Aminotransferase 18 U/L (16-61); Alkaline Phosphatase 87 U/L (45-117); Aspartate Aminotransferase 8 U/L (15-37); BUN/Creatinine Ratio 23.5; Bilirubin, Total 0.5 mg/dL (0.2-1.0); GFR African American 116 mL/min; GFR Non-African American 96 mL/min; Phosphorus 3.8 mg/dL (2.5-4.90); Total Protein 7.2 g/dL (6.4-8.2)
[2020-04-20 09:00] VITALS: BP 187/75
[2020-04-20] MEDS: FAMOTIDINE 20 MG TAB PO SCH (09:19)
[2020-04-20] MEDS: POTASSIUM CHL 20 Meq TABLET PO SCH (09:19)
[2020-04-20] MEDS: CITALOPRAM HYDROBR 20 MG TAB PO SCH (09:20)
[2020-04-20] MEDS: CLOPIDOGREL BISULFATE 75 MG TAB PO SCH (09:20)
[2020-04-20] MEDS: CARVEDILOL 12.5 MG TAB PO SCH ×2 (09:20→22:00)
[2020-04-20] MEDS: ASPirin 81 mg TAB PO SCH (09:20)
[2020-04-20] MEDS: RANOLAZINE ER 500 MG TAB PO SCH ×2 (09:21→22:00)
[2020-04-20] MEDS: ENOXAPARIN SOD 40 MG/0.4 ML SYRINGE SC SCH (09:22)
[2020-04-20] MEDS: LISINOPRIL 20 MG TAB PO SCH (09:22)
[2020-04-20] MEDS: NICOTINE 21MG/24 HR TOPICAL PATCH TD SCH (09:22)
--- NOTE | 2020-04-20 09:50 | NUR ---
ASSESSED PT FOR PRN MED NEB TX, PT ON RA WITH SPO2 98%, HR 59, RR 16 WITH CLEAR BS. NO DISTRESS NOTED NO INDICATION FOR MED NEB TX AT THIS TIME.
[2020-04-20] MEDS ORDERED: LISINOPRIL 20 MG TAB PO SCH (10:00)
--- NOTE | 2020-04-20 11:40 | NUR ---
RN HOWARD GAVE PATIENT PAIN MEDICATION AND INFORMED ME THAT SHE SAW THE PATIENT APPROXIMATELY 5 MINUTES LATER AMBULATING TO HALLS, WHEN ASKED HE INFORMED HER HE WAS GOING OUTSIDE TO SMOKE. PATIENT RETURNED TO ROOM AND WAS EDUCATED THAT IT IS NOT RECOMMENDED THAT HE GO OUTSIDE TO SMOKE AND THAT IF HE CHOOSES TO GO OUTSIDE HE WILL NEED TO SIGN REFUSAL OF HOSPITAL POLICY- IN ADDITION IF HE IS TO RECEIVE PAIN MEDICATION HE WILL HAVE TO WAIT 30 MINUTES BEFORE GOING OUTSIDE TO SMOKE. PATIENT VERBALIZED UNDERSTANDING OF EDUCATION. FORM WAS SIGNED AND PLACED IN CHART.
--- NOTE | 2020-04-20 12:16 | NUR ---
Nutrition Assessment/consult Notes please see attached link for complete assessment [employer] needs BW 81 [id number] kcals (25-30 kcal/kgBW), Est Protein needs: 81-97 gms/day (1.0-1.2 gm/kgBW).Will continue to monitor and reassess prn. Addendum: 04/20/20 at [address] Amended: Links added.
[2020-04-20 13:00] VITALS: BP 159/83
[2020-04-20 16:53] VITALS: BP 156/83
[2020-04-20] MEDS: SOD CHL 0.45% 1,000 ML IV SCH ×2 (17:10→20:27)
--- NOTE | 2020-04-20 19:30 | NUR ---
Opening Shift Note Assumed care of patient, awake and alert and walking off unit to go outside to smoke. This RN in report with day RN; AMA already signed for smoking. This RN reviewed with pt he is not to be off unit > 15 min; pt VU and prev knowledge. No S/S of distress/SOB or pain. Upon return to unit, instructed pt on POC and to callfor assist PRN, will continue to monitor for changes Q1hr and PRN.
[2020-04-20 22:00] VITALS: BP 139/66
[2020-04-20] MEDS: ATORVASTATIN 20 MG TAB PO SCH (22:29)
[2020-04-21] MEDS: MORPHINE SULF INJ 2 MG/ML SYRINGE 1ML IV PRN ×4 (00:48→13:02)
[2020-04-21] MEDS: DOXYCYCLINE 100MG/250ML 250 ML IV SCH (02:13)
--- NOTE | 2020-04-21 02:17 | NUR ---
This RN prepared pt's vibramycin to infuse and as started to infuse med, pt refused it stating that the doctor said all the tests had come back negative and he did not have to have it. Med wasted.
--- NOTE | 2020-04-21 04:56 | NUR ---
Pain in L side and extremities awakened pt as earlier this a.m. Morphine 2mg IV given as ordered.
[2020-04-21 05:00] VITALS: BP 148/86
[2020-04-21] MEDS: NALOXONE SL SCH (06:00)
[2020-04-21] MEDS: GABAPENTIN 300 MG CAP PO SCH (06:00)
[2020-04-21] MEDS: FUROSEMIDE 20 MG/2 ML VIAL IV SCH (06:00)
[2020-04-21] MEDS: BUPRENORPHINE SL SCH (06:00)
[2020-04-21] MEDS: methylPREDNISolone SOD SUCC 40 MG/ML VL IV SCH (06:00)
[2020-04-21] MEDS: ACCU-CHEK COMFORT CURVE STRIP VI SCH ×2 (06:24→11:15)
[2020-04-21] MEDS: LEVOTHYROXINE SODIUM 25 MCG TAB PO SCH (06:24)
--- NOTE | 2020-04-21 07:06 | NUR ---
OPENING SHIFT NOTE Assumed care of patient from veterinary hospital shift lead RN. Patient is alert and orientedx4, no signs of distress noted. Patient was updated on the plan of care and verbalized understanding. Patient is sitting in a chair at bedside eating breakfast. Call light is in reach, he was encouraged to call for assistance as needed.
[2020-04-21] MEDS: InsuLIN REG 1unit/0.01ml Soln (100units/ml) SC SCH ×2 (07:11→11:39)
[2020-04-21 08:40] VITALS: BP 154/78
--- NOTE | 2020-04-21 08:41 | NUR ---
BLOOD PRESSURE Morning vitals from DIESEL TRACTOR ENGINE MECHANIC showed patient blood pressure 178/96, Reassessment shows BP 154/78. Patient states he is in pain 05/23. Pain medication is due at 0855, will medicate the patient as ordered.
[2020-04-21] MEDS: POTASSIUM CHL 20 Meq TABLET PO SCH (09:39)
[2020-04-21] MEDS: CITALOPRAM HYDROBR 20 MG TAB PO SCH (09:39)
[2020-04-21] MEDS: CARVEDILOL 12.5 MG TAB PO SCH (09:39)
[2020-04-21] MEDS: ASPirin 81 mg TAB PO SCH (09:39)
[2020-04-21] MEDS: LISINOPRIL 20 MG TAB PO SCH (09:40)
[2020-04-21] MEDS: FAMOTIDINE 20 MG TAB PO SCH (09:40)
[2020-04-21] MEDS: CLOPIDOGREL BISULFATE 75 MG TAB PO SCH (09:40)
[2020-04-21] MEDS: RANOLAZINE ER 500 MG TAB PO SCH (09:40)
[2020-04-21] MEDS: NICOTINE 21MG/24 HR TOPICAL PATCH TD SCH (09:41)
[2020-04-21] MEDS: ENOXAPARIN SOD 40 MG/0.4 ML SYRINGE SC SCH (09:41)
--- NOTE | 2020-04-21 10:05 | NUR ---
NEWMAN AT BEDSIDE updated on patient status, plan of care discussed with the patient. Per MD patient will be discharged today.
[2020-04-21 12:21] VITALS: BP 154/78
[2020-04-21 13:00] VITALS: BP 151/82
--- NOTE | 2020-04-21 14:20 | NUR ---
DISCHARGE Discharge instructions given as ordered. Encourage to follow up with PMD as instructed. All questions and concerns addressed. Patient verbalized understanding. Medication reconciliation form completed and copy given to patient. IV removed with catheter intact, pressure dressing applied, Telemetry unit returned to ICU. Patient refused to be taken by wheelchair. Patient insisted on using walker to go to lobby. Patient has a steady gait with walker. No distress noted at time of departure.
[2020-05-12] MEDS ORDERED: SUCR1TAB22 PO (14:22)
== END 2020-04-21 14:20 | disposition home or self-care (01) | DRG 190 ==
LOC: EDBD 10:08 → ER 10:08 → TELE 10:09 → TELE-CENTR 20:59
PROVIDERS: ADMIT Hospitalist; ATTEND Family Medicine
DX: J44.1 Chronic obstructive pulmonary disease with (acute) exacerbation (principal); I50.43 Acute on chronic combined systolic (congestive) and diastolic (congestive) heart failure; J45.901 Unspecified asthma with (acute) exacerbation; I11.0 Hypertensive heart disease with heart failure; E87.6 Hypokalemia; I25.5 Ischemic cardiomyopathy; J84.10 Pulmonary fibrosis, unspecified; E66.01 Morbid (severe) obesity due to excess calories; K21.9 Gastro-esophageal reflux disease without esophagitis; E03.9 Hypothyroidism, unspecified; F11.10 Opioid abuse, uncomplicated; F32.9 Major depressive disorder, single episode, unspecified; I25.10 Atherosclerotic heart disease of native coronary artery without angina pectoris; E11.51 Type 2 diabetes mellitus with diabetic peripheral angiopathy without gangrene; E78.5 Hyperlipidemia, unspecified; F17.210 Nicotine dependence, cigarettes, uncomplicated; F41.9 Anxiety disorder, unspecified; E11.65 Type 2 diabetes mellitus with hyperglycemia; R07.89 Other chest pain; M54.32 Sciatica, left side; Z79.02 Long term (current) use of antithrombotics/antiplatelets; Z79.4 Long term (current) use of insulin; Z79.82 Long term (current) use of aspirin; Z82.3 Family history of stroke; Z86.73 Personal history of transient ischemic attack (TIA), and cerebral infarction without residual deficits; Z95.5 Presence of coronary angioplasty implant and graft; Z88.8 Allergy status to other drugs, medicaments and biological substances; M54.31 Sciatica, right side; D50.9 Iron deficiency anemia, unspecified; D63.8 Anemia in other chronic diseases classified elsewhere; Z68.26 Body mass index [BMI] 26.0-26.9, adult
CPT/HCPCS: 36415; 71045; 80053; 80061; 80307; 81001; 82962; 83036; 83735; 83880; 84100; 84443; 84484; 85025; 85610; 85730; 87040; 87086; 93005; 94640; 96365; 96372; 96375; 99291; G0378; J1815; J2405; J3480; J3490

== ENCOUNTER 2020-04-25 14:22 | Inpatient (IN) | payer MEDICARE, MEDICAID ==
[~2020-04-25] VITALS: Ht 182.9 cm; Wt 80.7 kg
[~2020-04-25 14:22] MED LIST changes: -DIA5T PO; -ESCI10TA53 PO; -FUR20T PO; +LORA-655 PO; -ZOLP10TA PO
[2020-04-25] MEDS ORDERED: LORazepam 0.5 MG TAB PO ONE (14:45)
[2020-04-25] MEDS ORDERED: ONDANSETRON HCL 4 MG/2 ML VIAL IV ONE (14:45)
[2020-04-25] MEDS ORDERED: ASPirin 81 mg TAB PO ONE (14:45)
[2020-04-25] MEDS ORDERED: MORPHINE SULFATE 4 MG/ML SYR/VIAL IV ONE (14:45)
[2020-04-25] MEDS ORDERED: NITROGLYCERIN 0.4MG/HR TOPICAL PATCH TD ONE (14:45)
[2020-04-25 15:47] LABS: Basophils # (auto) 0 10 ^3/uL (0-0.2); Basophils % (auto) 0.4 % (0.0-2.0); Eosinophils # (auto) 0.1 10 ^3/uL (0-0.8); Hematocrit 36.5 % (41.0-53.0); Hemoglobin 12.5 g/dL (13.5-17.5); Lymphocytes # (auto) 1.4 10 ^3/uL (0.4-5.4); Lymphocytes % (auto) 27.6 % (10.0-50.0); Mean Corpuscular Hemoglobin 29.2 pg (28.0-32.0); Mean Corpuscular Hgb Conc. 34.4 g/dL (32.0-36.0); Monocytes # (auto) 0.4 10 ^3/uL (0-1.3); Monocytes % (auto) 6.8 % (0.0-12.0); Neutrophils # (auto) 3.3 10 ^3/uL (1.6-8.6); Neutrophils % (auto) 64.2 % (37.0-80.0); Nucleated Red Blood Cells % 0.2 %; Platelet Count (auto) 167 10^3/uL (140-450); Red Blood Cells 4.29 10^6/uL (4.5-5.90); Red Cell Distribution Width 16.5 % (11.8-14.3); White Blood Cell 5.2 10^3/uL (4.4-10.8)
[2020-04-25 16:00] LABS: Albumin 3.6 g/dL (3.4-5.0); Anion Gap 7 (5-15); Blood Urea Nitrogen 12 mg/dL (7-18); Calcium 8.6 mg/dL (8.5-10.1); Carbon Dioxide 25 mmol/L (21-32); Chloride 106 mmol/L (98-107); Glucose 164 mg/dL (74-106); Magnesium 2.3 mg/dL (1.6-2.6); Potassium 3.4 mmol/L (3.5-5.1); Sodium 138 mmol/L (136-145)
[2020-04-25 16:05] LABS: Alanine Aminotransferase 19 U/L (16-61); Alkaline Phosphatase 90 U/L (45-117); Aspartate Aminotransferase 13 U/L (15-37); BUN/Creatinine Ratio 19.7; Bilirubin, Total 0.8 mg/dL (0.2-1.0); GFR African American 170 mL/min; GFR Non-African American 140 mL/min; Total Protein 7.6 g/dL (6.4-8.2)
[2020-04-25 16:13] LABS: INR 1.04 (0.9-1.15); Partial Thromboplastin Time 27.2 sec (23.64-32.05)
[2020-04-26] MEDS ORDERED: TEMAZEPAM 15 MG CAP PO PRN (02:15)
[2020-04-26] MEDS ORDERED: ONDANSETRON HCL 4 MG/2 ML VIAL IV PRN (02:15)
[2020-04-26] MEDS ORDERED: DEXTROSE (50%) 50ML SYRG IV PRN (02:15)
[2020-04-26] MEDS ORDERED: NITROGLYCERIN 0.4 MG SL TAB SL PRN (02:15)
[2020-04-26] MEDS ORDERED: ACETAMINOPHEN 325 MG TAB PO PRN (02:15)
[2020-04-26] MEDS ORDERED: MORPHINE SULF INJ 2 MG/ML SYRINGE 1ML IV PRN (02:15)
[2020-04-26] MEDS ORDERED: IOHEXOL 350 MG/ML 100ML IJ ONE (02:25)
--- NOTE | 2020-04-26 03:30 | NUR ---
Telemetry admit from [facility]BY admitted to Telemetry unit. Patient oriented to LORY HOFFMANN, primary RN, unit, room, bed, and unit policies regarding patient care and visiting hours. Patient now on continuous telemetry monitoring, tele box #59 and telemetry reading on arrival to unit is normal sinus rhythm. Patient placed on bedside oxygen, weighed by bedscale and encouraged to call if they need something. All questions and concerns addressed, patient verbalized understanding.pt A0X4 no s/s of distress or sob.
[2020-04-26 03:35] VITALS: BP 166/84
--- NOTE | 2020-04-26 03:45 | NUR ---
chest pain pt complain of chest pain 04/22 . did chest pain protocol. EKG done place pt on oxygen 2l nasal cannula offer pt Nitrostat but pt refused and demanded morphine told pt morphine was just giving in ER and unable administer at this time see [email or web address] s/s of distress or sob noted .hospitalist steffen notify and no new order received stated "place ekg on my table and leave " reassess 0400 pt is sleeping breathing non labored symmetrical chest raise and fall and no sign of pain noted
[2020-04-26 05:40] VITALS: BP_SYST 114; BP_SYST 166; BP_DIAS 54; BP_DIAS 84
[2020-04-26] MEDS: ACCU-CHEK COMFORT CURVE STRIP VI SCH ×2 (06:43→12:38)
[2020-04-26] MEDS: InsuLIN REG 1unit/0.01ml Soln (100units/ml) SC SCH ×2 (06:47→12:38)
[2020-04-26] MEDS ORDERED: LEVOTHYROXINE SODIUM 25 MCG TAB PO SCH (07:00)
--- NOTE | 2020-04-26 07:30 | NUR ---
Opening Note Assumed patient care from NOC RNMargret. Received report at bedside. Patient currently up to restroom, no signs of distress at this time, respirations even and unlabored. Will continue to monitor.
--- NOTE | 2020-04-26 08:40 | NUR ---
Patient Off Unit Addendum: 04/26/20 at 0841 by KATE ECHEVERRIA RN RN Went to obtain EKG, patient currently not in room.
--- NOTE | 2020-04-26 08:45 | NUR ---
Patient Paged Manufacturing Planner overhead paged patient to return to room.
--- NOTE | 2020-04-26 08:46 | NUR ---
Paged Security Paged security for return of patient.
--- NOTE | 2020-04-26 08:47 | NUR ---
Patient Returned Patient stated he had gone downstairs to smoke. Patient educated on need to notify staff before leaving unit and that he would need to sign an AMA in order to go downstairs to smoke. Patient verbalized understanding. No signs of distress noted at this time, respirations even and unlabored, will continue to monitor.
--- NOTE | 2020-04-26 08:48 | NUR ---
AMA TO SMOKE Patient educated on risks of going against medical advice and smoking. Patient educated on contraindications of smoking and to refrain from smoking if he is having chest pain. Patient verbalized understanding but continues to insist on smoking. AMA to smoke has been signed.
--- NOTE | 2020-04-26 08:54 | NUR ---
at Station Spoke with Dr. Cavazos regarding patient's plan of care, notified that NOC RN had obtained an EKG for Hospitalist to sign but EKG had not been returned at this time; also made aware that I had attempted to do another EKG but patient was off unit and patient had just returned from smoking. No new orders at this time.
[2020-04-26] MEDS ORDERED: FURO20TA3 PO (08:58)
[2020-04-26] MEDS ORDERED: AMLO5TAB15 PO (08:58)
[2020-04-26] MEDS ORDERED: AML5T PO (08:58)
[2020-04-26] MEDS ORDERED: AML5T GT (08:58)
[2020-04-26 09:00] VITALS: BP 149/85
--- NOTE | 2020-04-26 09:46 | NUR ---
at Bedside Dr. Lomeli at bedside discussing plan of care with patient. Per MD, spoke with Dr. Cavazos, patient is cleared by cardiology. Per MD, patient is to receive no Morphine at this time. Patient is aware.
[2020-04-26] MEDS ORDERED: RANO1000 PO (09:53)
[2020-04-26] MEDS ORDERED: FAMOTIDINE 20 MG TAB PO SCH (10:00)
[2020-04-26] MEDS ORDERED: FUROSEMIDE 40 MG/4 ML VIAL IV ONE (10:00)
[2020-04-26] MEDS ORDERED: ASPirin 81 mg TAB PO SCH (10:00)
[2020-04-26] MEDS ORDERED: POTASSIUM CHL 20 Meq TABLET PO ONE ×2 (10:00)
[2020-04-26] MEDS ORDERED: CLOPIDOGREL BISULFATE 75 MG TAB PO SCH (10:00)
[2020-04-26] MEDS ORDERED: CARVEDILOL 12.5 MG TAB PO SCH (10:00)
[2020-04-26] MEDS ORDERED: RANOLAZINE ER 500 MG TAB PO SCH (10:00)
[2020-04-26] MEDS ORDERED: LISINOPRIL 10 MG TAB PO SCH (10:00)
[2020-04-26] MEDS ORDERED: LEV25T PO (10:48)
[2020-04-26] MEDS ORDERED: METF-370 PO (10:48)
[2020-04-26] MEDS ORDERED: ASPI81CH43 PO (10:48)
[2020-04-26] MEDS ORDERED: NITR0.4S29 SL (10:48)
[2020-04-26] MEDS ORDERED: POTA10TA51 PO (10:49)
[2020-04-26] MEDS ORDERED: LISI-646 PO (10:49)
[2020-04-26] MEDS ORDERED: LISI30TA4 PO (10:49)
--- NOTE | 2020-04-26 12:00 | NUR ---
Patient Off Unit Patient off unit to smoke.
--- NOTE | 2020-04-26 12:20 | NUR ---
Patient Returned Patient returned to unit to smoke.
[2020-04-26 12:43] VITALS: BP 160/85
[2020-04-26 13:27] VITALS: BP 146/84
--- NOTE | 2020-04-26 15:00 | NUR ---
assessment Patient is a 69-year-old male who is alert and oriented. Prior to admission patient lived home with family and was independent. Patient has a fww for home use. Patients PCP is Dr Jacobo. Advised patient there is a social service consult for home health for vitals, medication management, and safety evaluation. Patient is on service with [facility]. Informed patient clinical information will be faxed to agency. Patient verbalized understanding and agreed to discharge plan home. Faxed clinical information to [place] will resume service for patient within 24-48hrs upon d/c day. Addendum: 04/26/20 at 1714 by ALESSANDRA LI Amended: Links added.
--- NOTE | 2020-04-26 15:10 | NUR ---
Patient off unit Off unit to smoke.
--- NOTE | 2020-04-26 15:20 | NUR ---
Patient returned to unit from smoking.
--- NOTE | 2020-04-26 15:40 | NUR ---
Discharge Discharge instructions given as ordered. Encourage to follow up with PMD as instructed. All questions and concerns addressed. Patient verbalized understanding. Medication reconciliation form completed and copy given to patient. Prescriptions given to patient. IV removed with catheter intact, pressure dressing applied. Attempted to obtain MRSA swab, patient refused, patient educated on need for swab, verbalized understanding but continued to refuse. All discharge paperwork given to patient as well as follow up appointment information and MD recommendations to obtain referrals from primary MD. Telemetry unit returned to ICU. Patient refused wheelchair and ambulated to vehicle. No distress noted at time of departure. Respirations even and unlabored, will continue to monitor.
[2020-04-26] MEDS ORDERED: ATORVASTATIN 20 MG TAB PO SCH (22:00)
[2020-04-27] MEDS ORDERED: ASPirin 81 mg TAB PO SCH (10:00)
== END 2020-04-26 15:40 | disposition home health service (06) | DRG 302 ==
LOC: EDUNIT# 14:22 → EDBD 14:22 → ER 14:22 → TELE 14:23 → TELE-WESTW 04-26 03:53
PROVIDERS: ADMIT Nurse Practitioner; ATTEND Internal Medicine
DX: I25.118 Atherosclerotic heart disease of native coronary artery with other forms of angina pectoris (principal); I50.43 Acute on chronic combined systolic (congestive) and diastolic (congestive) heart failure; F11.20 Opioid dependence, uncomplicated; I16.1 Hypertensive emergency; E11.9 Type 2 diabetes mellitus without complications; E87.6 Hypokalemia; E03.9 Hypothyroidism, unspecified; E78.5 Hyperlipidemia, unspecified; F17.210 Nicotine dependence, cigarettes, uncomplicated; I11.0 Hypertensive heart disease with heart failure; I25.5 Ischemic cardiomyopathy; J43.9 Emphysema, unspecified; R79.89 Other specified abnormal findings of blood chemistry; J84.10 Pulmonary fibrosis, unspecified; Z82.49 Family history of ischemic heart disease and other diseases of the circulatory system; Z79.4 Long term (current) use of insulin; Z82.3 Family history of stroke; Z91.19 Patient's noncompliance with other medical treatment and regimen; Z95.5 Presence of coronary angioplasty implant and graft; I25.2 Old myocardial infarction; Z88.8 Allergy status to other drugs, medicaments and biological substances; Z79.82 Long term (current) use of aspirin
CPT/HCPCS: 36415; 71045; 71275; 80053; 82962; 83735; 83880; 84484; 85025; 85379; 85610; 85730; 93005; 96374; 96375; G0378; J1815; J2405

== ENCOUNTER → 2020-04-29 | Emergency (ER) | payer MEDICARE, MEDICAID ==
[~2020-04-29] VITALS: Ht 182.9 cm; Wt 80.3 kg
[~2020-04-29] MED LIST changes: -ALBUAER3 IN; +AML5T PO; +ASPirin 81 mg TAB PO ONE; -CARV12.544 PO; -FAMO20TA10 PO; +FURO20TA3 PO; -LORA-655 PO; +MORPHINE SULFATE 4 MG/ML SYR/VIAL IV ONE; -NIC21P TOP; +NITR0.4S29 SL; +NITROGLYCERIN 0.2MG/HR TOPICAL PATCH TD ONE; +ONDANSETRON HCL 4 MG/2 ML VIAL IV ONE; +OXYCODONE W/ ACETAMINOPHEN 5/325MG TABLET PO ONE; +PANT40T PO; +POTA10TA51 PO; -POTA1TAB61 PO; +RANO1000 PO; +SUCR1TAB22 PO
[2020-04-29 02:48] LABS: Basophils # (auto) 0 10 ^3/uL (0-0.2); Basophils % (auto) 0.8 % (0.0-2.0); Eosinophils # (auto) 0.2 10 ^3/uL (0-0.8); Eosinophils % (auto) 2.9 % (0.0-7.0); Hematocrit 38.1 % (41.0-53.0); Hemoglobin 13.2 g/dL (13.5-17.5); Lymphocytes # (auto) 2.3 10 ^3/uL (0.4-5.4); Mean Corpuscular Hemoglobin 29.7 pg (28.0-32.0); Mean Corpuscular Hgb Conc. 34.6 g/dL (32.0-36.0); Mean Corpuscular Volume 85.9 fL (80.0-100.0); Monocytes # (auto) 0.5 10 ^3/uL (0-1.3); Monocytes % (auto) 7.7 % (0.0-12.0); Neutrophils # (auto) 3.2 10 ^3/uL (1.6-8.6); Neutrophils % (auto) 51.6 % (37.0-80.0); Platelet Count (auto) 182 10^3/uL (140-450); Red Blood Cells 4.43 10^6/uL (4.5-5.90); Red Cell Distribution Width 15.9 % (11.8-14.3); White Blood Cell 6.1 10^3/uL (4.4-10.8)
[2020-04-29 03:00] LABS: Alanine Aminotransferase 21 U/L (16-61); Albumin 3.5 g/dL (3.4-5.0); Anion Gap 7 (5-15); Aspartate Aminotransferase 14 U/L (15-37); BUN/Creatinine Ratio 21.4; Blood Urea Nitrogen 15 mg/dL (7-18); Calcium 8.6 mg/dL (8.5-10.1); Carbon Dioxide 25 mmol/L (21-32); Chloride 106 mmol/L (98-107); GFR African American 145 mL/min; GFR Non-African American 120 mL/min; Glucose 207 mg/dL (74-106); Magnesium 2.2 mg/dL (1.6-2.6); Potassium 3.6 mmol/L (3.5-5.1); Sodium 138 mmol/L (136-145)
[2020-04-29 03:05] LABS: Alkaline Phosphatase 90 U/L (45-117); Bilirubin, Total 0.7 mg/dL (0.2-1.0); Total Protein 7.6 g/dL (6.4-8.2)
[2020-04-29 03:19] LABS: INR 1.01 (0.9-1.15); Partial Thromboplastin Time 26.2 sec (23.64-32.05)
[2020-04-29 06:00] VITALS: BP 152/82
== END | disposition home or self-care (01) ==
LOC: ER 02:15
DX: R07.89 Other chest pain (principal); I10 Essential (primary) hypertension; E11.9 Type 2 diabetes mellitus without complications; K21.9 Gastro-esophageal reflux disease without esophagitis; I25.2 Old myocardial infarction; F17.210 Nicotine dependence, cigarettes, uncomplicated; Z88.8 Allergy status to other drugs, medicaments and biological substances
CPT/HCPCS: 36415; 71045; 80053; 83735; 84484; 85025; 85610; 85730; 93005; 96374; 96375; 99285; J2270; J2405

== ENCOUNTER 2020-05-01 07:34 | Emergency (ER) | payer MEDICARE, MEDICAID ==
[~2020-05-01] VITALS: Ht 195.6 cm; Wt 81.6 kg
[2020-05-01 07:34] VITALS: BP 174/93
[~2020-05-01 07:34] MED LIST changes: +ALBUAER3 IN; +AML5T GT; +AMLO5TAB15 PO; -ASPirin 81 mg TAB PO ONE; +CARV12.544 PO; +FAMO20TA10 PO; +LISI30TA4 PO; +LORA-655 PO; +METF-370 PO; -MORPHINE SULFATE 4 MG/ML SYR/VIAL IV ONE; +NIC21P TOP; -NITROGLYCERIN 0.2MG/HR TOPICAL PATCH TD ONE; -ONDANSETRON HCL 4 MG/2 ML VIAL IV ONE; -OXYCODONE W/ ACETAMINOPHEN 5/325MG TABLET PO ONE; -PANT40T PO; +POTA1TAB61 PO; -SUCR1TAB22 PO
[2020-05-01 08:27] LABS: Urine Bacteria NONE SEEN /hpf (None Seen); Urine Blood Negative /uL (Negative); Urine Specific Gravity 1.012 (1.001-1.035); Urine WBC <1 /hpf (0 - 3)
[2020-05-01 09:29] LABS: Basophils # (auto) 0 10 ^3/uL (0-0.2); Basophils % (auto) 0.4 % (0.0-2.0); Eosinophils # (auto) 0.1 10 ^3/uL (0-0.8); Eosinophils % (auto) 1.6 % (0.0-7.0); Hematocrit 39.9 % (41.0-53.0); Hemoglobin 13.7 g/dL (13.5-17.5); Lymphocytes % (auto) 18.3 % (10.0-50.0); Mean Corpuscular Hemoglobin 29.9 pg (28.0-32.0); Mean Corpuscular Hgb Conc. 34.5 g/dL (32.0-36.0); Mean Corpuscular Volume 86.8 fL (80.0-100.0); Monocytes # (auto) 0.2 10 ^3/uL (0-1.3); Neutrophils # (auto) 4.2 10 ^3/uL (1.6-8.6); Neutrophils % (auto) 75.7 % (37.0-80.0); Nucleated Red Blood Cells % 0.1 %; Platelet Count (auto) 176 10^3/uL (140-450); Red Cell Distribution Width 16.3 % (11.8-14.3); White Blood Cell 5.5 10^3/uL (4.4-10.8)
[2020-05-01 09:42] LABS: Partial Thromboplastin Time 26.1 sec (23.64-32.05)
[2020-05-01 09:49] LABS: Albumin 3.5 g/dL (3.4-5.0); Anion Gap 6 (5-15); BUN/Creatinine Ratio 17.5; Blood Urea Nitrogen 14 mg/dL (7-18); Calcium 8.5 mg/dL (8.5-10.1); Carbon Dioxide 28 mmol/L (21-32); Chloride 103 mmol/L (98-107); GFR African American 124 mL/min; GFR Non-African American 102 mL/min; Glucose 273 mg/dL (74-106); Potassium 3.9 mmol/L (3.5-5.1); Sodium 137 mmol/L (136-145)
[2020-05-01 09:54] LABS: Alanine Aminotransferase 21 U/L (16-61); Alkaline Phosphatase 97 U/L (45-117); Aspartate Aminotransferase 12 U/L (15-37); Bilirubin, Total 0.5 mg/dL (0.2-1.0); Total Protein 7.9 g/dL (6.4-8.2)
[2020-05-12] MEDS ORDERED: SUCR1TAB22 PO (14:22)
== END 2020-05-01 13:30 | disposition left against medical advice (07) ==
LOC: ER 07:34
DX: R07.9 Chest pain, unspecified (principal); I10 Essential (primary) hypertension; R03.0 Elevated blood-pressure reading, without diagnosis of hypertension; Z53.21 Procedure and treatment not carried out due to patient leaving prior to being seen by health care provider
CPT/HCPCS: 36415; 71046; 80053; 81001; 84484; 85025; 85610; 85730; 93005

== ENCOUNTER 2020-05-03 16:19 | Emergency (ER) | payer MEDICARE, MEDICAID ==
[~2020-05-03] VITALS: Ht 182.9 cm; Wt 98.4 kg
[~2020-05-03 16:19] MED LIST changes: -ALBUAER3 IN; -AML5T GT; -AMLO5TAB15 PO; -CARV12.544 PO; -FAMO20TA10 PO; -LISI30TA4 PO; -LORA-655 PO; -METF-370 PO; -NIC21P TOP; -POTA1TAB61 PO
[2020-05-03 16:52] VITALS: BP 168/103
[2020-05-03 17:53] LABS: Basophils # (auto) 0 10 ^3/uL (0-0.2); Basophils % (auto) 0.4 % (0.0-2.0); Eosinophils # (auto) 0.2 10 ^3/uL (0-0.8); Eosinophils % (auto) 2.1 % (0.0-7.0); Hematocrit 40.5 % (41.0-53.0); Hemoglobin 13.8 g/dL (13.5-17.5); Lymphocytes % (auto) 27.7 % (10.0-50.0); Mean Corpuscular Hemoglobin 29.5 pg (28.0-32.0); Mean Corpuscular Hgb Conc. 34.1 g/dL (32.0-36.0); Mean Corpuscular Volume 86.6 fL (80.0-100.0); Monocytes # (auto) 0.5 10 ^3/uL (0-1.3); Monocytes % (auto) 7.3 % (0.0-12.0); Neutrophils # (auto) 4.5 10 ^3/uL (1.6-8.6); Neutrophils % (auto) 62.5 % (37.0-80.0); Nucleated Red Blood Cells % 0.1 %; Platelet Count (auto) 228 10^3/uL (140-450); Red Blood Cells 4.68 10^6/uL (4.5-5.90); White Blood Cell 7.3 10^3/uL (4.4-10.8)
[2020-05-03 18:07] LABS: Albumin 3.6 g/dL (3.4-5.0); Anion Gap 7 (5-15); Blood Urea Nitrogen 21 mg/dL (7-18); Carbon Dioxide 24 mmol/L (21-32); Chloride 107 mmol/L (98-107); Glucose 231 mg/dL (74-106); Potassium 3.4 mmol/L (3.5-5.1); Sodium 138 mmol/L (136-145)
[2020-05-03 18:08] LABS: Partial Thromboplastin Time 27.3 sec (23.64-32.05)
[2020-05-03 18:10] LABS: Alanine Aminotransferase 20 U/L (16-61); Aspartate Aminotransferase 8 U/L (15-37); GFR African American 134 mL/min; GFR Non-African American 110 mL/min
[2020-05-03 18:14] LABS: Alkaline Phosphatase 96 U/L (45-117); Bilirubin, Total 0.6 mg/dL (0.2-1.0); Total Protein 8.1 g/dL (6.4-8.2)
== END 2020-05-03 19:10 | disposition home or self-care (01) ==
LOC: ER 16:19
DX: R07.89 Other chest pain (principal); M79.602 Pain in left arm; R06.02 Shortness of breath; R19.7 Diarrhea, unspecified
CPT/HCPCS: 36415; 80053; 83880; 84484; 85025; 85610; 85730; 93005

== ENCOUNTER → 2020-05-06 | Outpatient (CLI) | payer MEDICARE, OTHER | END | disposition home or self-care (01) | LOC: LAB 08:37 | PROVIDERS: ATTEND Internal Medicine | DX: Z12.5 Encounter for screening for malignant neoplasm of prostate (principal); I50.40 Unspecified combined systolic (congestive) and diastolic (congestive) heart failure; I25.10 Atherosclerotic heart disease of native coronary artery without angina pectoris; E11.9 Type 2 diabetes mellitus without complications | CPT/HCPCS: 82043; 84153 ==

== ENCOUNTER 2020-05-10 20:52 | Inpatient (IN) | payer MEDICARE, MEDICAID ==
[~2020-05-10] VITALS: Ht 182.9 cm; Wt 82.5 kg
[~2020-05-10 20:52] MED LIST changes: -IOHEXOL 350 MG/ML 100ML IJ ONE; -PANT40T PO; -SUCR1TAB22 PO
[2020-05-10] MEDS ORDERED: cloNIDine HCL 0.1 MG TAB PO ONE (21:30)
[2020-05-10 22:05] LABS: Basophils # (auto) 0 10 ^3/uL (0-0.2); Basophils % (auto) 0.5 % (0.0-2.0); Eosinophils # (auto) 0.1 10 ^3/uL (0-0.8); Eosinophils % (auto) 1.6 % (0.0-7.0); Hematocrit 37.9 % (41.0-53.0); Hemoglobin 13.1 g/dL (13.5-17.5); Lymphocytes # (auto) 1.7 10 ^3/uL (0.4-5.4); Lymphocytes % (auto) 27.5 % (10.0-50.0); Mean Corpuscular Hemoglobin 29.6 pg (28.0-32.0); Mean Corpuscular Hgb Conc. 34.5 g/dL (32.0-36.0); Monocytes # (auto) 0.5 10 ^3/uL (0-1.3); Neutrophils # (auto) 3.8 10 ^3/uL (1.6-8.6); Neutrophils % (auto) 62.4 % (37.0-80.0); Nucleated Red Blood Cells % 0.6 %; Platelet Count (auto) 193 10^3/uL (140-450); Red Blood Cells 4.41 10^6/uL (4.5-5.90); Red Cell Distribution Width 15.8 % (11.8-14.3)
[2020-05-10 22:21] LABS: INR 1.01 (0.9-1.15); Partial Thromboplastin Time 26.5 sec (23.64-32.05)
[2020-05-10 22:26] LABS: Albumin 3.4 g/dL (3.4-5.0); Anion Gap 8 (5-15); Blood Urea Nitrogen 13 mg/dL (7-18); Calcium 8.6 mg/dL (8.5-10.1); Carbon Dioxide 26 mmol/L (21-32); Chloride 103 mmol/L (98-107); Glucose 282 mg/dL (74-106); Sodium 137 mmol/L (136-145)
[2020-05-10 22:28] LABS: Alanine Aminotransferase 21 U/L (16-61); Aspartate Aminotransferase 12 U/L (15-37); BUN/Creatinine Ratio 19.7; GFR African American 155 mL/min; GFR Non-African American 128 mL/min
[2020-05-10 22:33] LABS: Alkaline Phosphatase 85 U/L (45-117); Bilirubin, Total 0.5 mg/dL (0.2-1.0); Total Protein 7.7 g/dL (6.4-8.2)
[2020-05-11] MEDS ORDERED: POTASSIUM CHL 20 Meq TABLET PO ONE (03:00)
[2020-05-11] MEDS ORDERED: MORPHINE SULFATE 4 MG/ML SYR/VIAL IV ONE (03:00)
[2020-05-11] MEDS ORDERED: ONDANSETRON HCL 4 MG/2 ML VIAL IV ONE (03:00)
[2020-05-11] MEDS ORDERED: ONDANSETRON HCL 4 MG/2 ML VIAL ONE (03:09)
[2020-05-11] MEDS ORDERED: DEXTROSE (50%) 50ML SYRG IV PRN ×2 (06:30→12:45)
[2020-05-11] MEDS ORDERED: ACETAMINOPHEN 325 MG TAB PO PRN (06:30)
[2020-05-11] MEDS ORDERED: ONDANSETRON HCL 4 MG/2 ML VIAL IV PRN (06:30)
[2020-05-11] MEDS ORDERED: NITROGLYCERIN 0.4 MG SL TAB SL PRN (06:30)
[2020-05-11] MEDS ORDERED: TEMAZEPAM 15 MG CAP PO PRN (06:30)
[2020-05-11] MEDS: LEVOTHYROXINE SODIUM 25 MCG TAB PO SCH (07:06)
[2020-05-11] MEDS: ACCU-CHEK COMFORT CURVE STRIP VI SCH ×4 (07:07→23:55)
[2020-05-11] MEDS: InsuLIN REG 1unit/0.01ml Soln (100units/ml) SC SCH ×4 (07:07→23:56)
[2020-05-11] MEDS: MORPHINE SULF INJ 2 MG/ML SYRINGE 1ML IV PRN ×4 (08:07→20:53)
--- NOTE | 2020-05-11 09:31 | NUR ---
Telemetry admit from [facility] RUBY admitted to Telemetry unit after SBAR received. Patient oriented to primary RN, unit, room, bed, and unit policies regarding patient care and visiting hours. Patient now on continuous telemetry monitoring, tele box # 76. Patient weighed by bedscale and encouraged to call if they need something. All questions and concerns addressed, patient verbalized understanding.
[2020-05-11] MEDS ORDERED: ASPirin 81 mg TAB PO SCH (10:00)
[2020-05-11] MEDS: FUROSEMIDE 20 MG TAB PO SCH (10:23)
[2020-05-11] MEDS: FAMOTIDINE 20 MG TAB PO SCH ×2 (10:24→20:53)
[2020-05-11] MEDS: RANOLAZINE ER 500 MG TAB PO SCH ×2 (10:24→20:54)
[2020-05-11] MEDS: CLOPIDOGREL BISULFATE 75 MG TAB PO SCH (10:24)
[2020-05-11] MEDS: ENOXAPARIN SOD 40 MG/0.4 ML SYRINGE SC SCH (10:24)
[2020-05-11] MEDS: amLODIPine BESYLATE 5 MG TAB PO SCH (10:24)
[2020-05-11] MEDS: LISINOPRIL 20 MG TAB PO SCH (10:25)
[2020-05-11] MEDS ORDERED: PANTOPRAZOLE 40 MG TAB PO ONE (10:30)
[2020-05-11] MEDS: SUCRALFATE 1 GM/10 ML ORAL SUSP GT SCH ×3 (11:34→20:52)
[2020-05-11 13:00] VITALS: BP 149/84
[2020-05-11 13:39] LABS: BUN/Creatinine Ratio 18.8; Calcium 9.3 mg/dL (8.5-10.1); Potassium 3.9 mmol/L (3.5-5.1)
--- NOTE | 2020-05-11 16:30 | NUR ---
MRSA Swab Uncollected, patient refused to be swabbed.
--- NOTE | 2020-05-11 16:40 | NUR ---
Material Handling Warehouse Supervisor Rounded Patient not in room at this time. No AMA signed.
--- NOTE | 2020-05-11 16:50 | NUR ---
On unit Patient returned to unit. States he went downstairs to smoke and he wasn't aware he had to sign form first.
--- NOTE | 2020-05-11 17:49 | NUR ---
AMA form signed and placed in chart.
[2020-05-11 17:50] VITALS: BP 123/81
[2020-05-11] MEDS: PANTOPRAZOLE 40 MG TAB PO SCH (20:54)
[2020-05-11 22:00] VITALS: BP 124/78
[2020-05-11] MEDS ORDERED: ATORVASTATIN 20 MG TAB PO SCH (22:00)
[2020-05-12] MEDS: MORPHINE SULF INJ 2 MG/ML SYRINGE 1ML IV PRN ×4 (01:24→14:32)
[2020-05-12 05:00] VITALS: BP 133/75
[2020-05-12] MEDS: InsuLIN REG 1unit/0.01ml Soln (100units/ml) SC SCH ×2 (05:46→11:46)
[2020-05-12] MEDS: ACCU-CHEK COMFORT CURVE STRIP VI SCH ×2 (05:46→11:43)
[2020-05-12 05:52] LABS: Basophils # (auto) 0 10 ^3/uL (0-0.2); Basophils % (auto) 0.7 % (0.0-2.0); Eosinophils # (auto) 0.1 10 ^3/uL (0-0.8); Eosinophils % (auto) 2.6 % (0.0-7.0); Hematocrit 37.9 % (41.0-53.0); Hemoglobin 12.9 g/dL (13.5-17.5); Lymphocytes # (auto) 1.7 10 ^3/uL (0.4-5.4); Lymphocytes % (auto) 29.3 % (10.0-50.0); Mean Corpuscular Hemoglobin 29.4 pg (28.0-32.0); Mean Corpuscular Hgb Conc. 34.2 g/dL (32.0-36.0); Monocytes # (auto) 0.4 10 ^3/uL (0-1.3); Monocytes % (auto) 6.9 % (0.0-12.0); Neutrophils # (auto) 3.5 10 ^3/uL (1.6-8.6); Neutrophils % (auto) 60.5 % (37.0-80.0); Nucleated Red Blood Cells % 0.1 %; Platelet Count (auto) 187 10^3/uL (140-450); Red Blood Cells 4.41 10^6/uL (4.5-5.90); Red Cell Distribution Width 15.9 % (11.8-14.3); White Blood Cell 5.7 10^3/uL (4.4-10.8)
[2020-05-12 06:09] LABS: BUN/Creatinine Ratio 34.6; Calcium 8.8 mg/dL (8.5-10.1); Potassium 3.5 mmol/L (3.5-5.1)
[2020-05-12] MEDS: SUCRALFATE 1 GM/10 ML ORAL SUSP GT SCH ×2 (06:10→11:52)
[2020-05-12] MEDS: LEVOTHYROXINE SODIUM 25 MCG TAB PO SCH (06:10)
[2020-05-12 08:42] VITALS: BP 140/74
[2020-05-12] MEDS: RANOLAZINE ER 500 MG TAB PO SCH (10:00)
[2020-05-12] MEDS ORDERED: ASPirin-EC 81 mg tab PO SCH (10:00)
[2020-05-12] MEDS: ENOXAPARIN SOD 40 MG/0.4 ML SYRINGE SC SCH (10:36)
[2020-05-12] MEDS: LISINOPRIL 20 MG TAB PO SCH (10:37)
[2020-05-12] MEDS: amLODIPine BESYLATE 5 MG TAB PO SCH (10:38)
[2020-05-12] MEDS: FAMOTIDINE 20 MG TAB PO SCH (10:38)
[2020-05-12] MEDS: PANTOPRAZOLE 40 MG TAB PO SCH (10:38)
[2020-05-12] MEDS: FUROSEMIDE 20 MG TAB PO SCH (10:39)
[2020-05-12] MEDS: CLOPIDOGREL BISULFATE 75 MG TAB PO SCH (10:39)
[2020-05-12 13:00] VITALS: BP 146/86
[2020-05-12] MEDS ORDERED: POLYETHYLENE GLYCOL 17 GM PWDR PO ONE (13:00)
[2020-05-12] MEDS ORDERED: LACTULOSE 20Gm/30ML SOLN PO PRN (13:00)
[2020-05-12] MEDS ORDERED: PANT40T PO (14:21)
[2020-05-12] MEDS ORDERED: SUCR1TAB38 PO (14:22)
--- NOTE | 2020-05-12 15:38 | NUR ---
PREFERRED PHARMACY PATIENT REQUESTING PREFERRED PHARMACY TO BE CHANGED FROM [facility] TO [facility]. CALLED IN E-SCRIPTS TO [facility] AND FAXED FACE SHEET PER PHARMACISTS REQUEST.
[2020-05-12 17:00] VITALS: BP 137/82
--- NOTE | 2020-05-12 17:37 | NUR ---
Patient Discharged Received an order to discharge the patient, the patient was prepared for discharge. Discharge paperwork was prepared, prescription called into [facility] but the patient hand carried the written prescription for Percocet. Reviewed the discharge instructions with the patient, highlighted his follow up appointments with Dr. Aguiar and Dr. Jacobo. The patient denied any questions and signed his discharge instructions. The patient was escorted out via walker at 1730hrs.
== END 2020-05-12 17:30 | disposition home or self-care (01) | DRG 303 ==
LOC: EDBD 20:52 → ER 20:52 → TELE 20:53 → TELE-WESTW 05-11 09:32
PROVIDERS: ADMIT Nurse Practitioner; ATTEND Internal Medicine
DX: I25.118 Atherosclerotic heart disease of native coronary artery with other forms of angina pectoris (principal); I16.1 Hypertensive emergency; F11.20 Opioid dependence, uncomplicated; I10 Essential (primary) hypertension; I25.5 Ischemic cardiomyopathy; M79.604 Pain in right leg; M79.605 Pain in left leg; E11.40 Type 2 diabetes mellitus with diabetic neuropathy, unspecified; E78.5 Hyperlipidemia, unspecified; K21.9 Gastro-esophageal reflux disease without esophagitis; F17.210 Nicotine dependence, cigarettes, uncomplicated; J43.9 Emphysema, unspecified; J84.10 Pulmonary fibrosis, unspecified; I25.2 Old myocardial infarction; Z95.5 Presence of coronary angioplasty implant and graft; Z82.3 Family history of stroke; Z91.19 Patient's noncompliance with other medical treatment and regimen; Z91.14 Patient's other noncompliance with medication regimen
CPT/HCPCS: 36415; 71045; 71046; 80048; 80053; 82962; 83880; 84484; 85025; 85379; 85610; 85730; 87081; 93005; 93970; 96374; 96375; G0378; J1815; J2405

== ENCOUNTER → 2020-05-10 | Emergency (ER) | payer MEDICARE, MEDICAID ==
[~2020-05-10] VITALS: Ht 182.9 cm; Wt 80.3 kg
[~2020-05-10] MED LIST changes: +IOHEXOL 350 MG/ML 100ML IJ ONE; +PANT40T PO; +SUCR1TAB22 PO
[2020-05-10 10:09] VITALS: BP 179/96
[2020-05-10 11:36] LABS: Basophils # (auto) 0 10 ^3/uL (0-0.2); Basophils % (auto) 0.3 % (0.0-2.0); Eosinophils # (auto) 0 10 ^3/uL (0-0.8); Eosinophils % (auto) 0.7 % (0.0-7.0); Hemoglobin 13.5 g/dL (13.5-17.5); Lymphocytes # (auto) 0.8 10 ^3/uL (0.4-5.4); Lymphocytes % (auto) 16.1 % (10.0-50.0); Mean Corpuscular Hemoglobin 29.4 pg (28.0-32.0); Mean Corpuscular Hgb Conc. 33.7 g/dL (32.0-36.0); Mean Corpuscular Volume 87.1 fL (80.0-100.0); Monocytes # (auto) 0.2 10 ^3/uL (0-1.3); Monocytes % (auto) 3.5 % (0.0-12.0); Neutrophils # (auto) 4.1 10 ^3/uL (1.6-8.6); Neutrophils % (auto) 79.4 % (37.0-80.0); Nucleated Red Blood Cells % 0.1 %; Platelet Count (auto) 210 10^3/uL (140-450); Red Blood Cells 4.59 10^6/uL (4.5-5.90); Red Cell Distribution Width 15.6 % (11.8-14.3); White Blood Cell 5.1 10^3/uL (4.4-10.8)
[2020-05-10 11:52] LABS: Albumin 3.7 g/dL (3.4-5.0); Anion Gap 8 (5-15); Blood Urea Nitrogen 14 mg/dL (7-18); Calcium 9.1 mg/dL (8.5-10.1); Carbon Dioxide 27 mmol/L (21-32); Chloride 101 mmol/L (98-107); Glucose 367 mg/dL (74-106); Potassium 3.4 mmol/L (3.5-5.1); Sodium 136 mmol/L (136-145)
[2020-05-10 12:00] LABS: Alanine Aminotransferase 22 U/L (16-61); Alkaline Phosphatase 94 U/L (45-117); Aspartate Aminotransferase 14 U/L (15-37); BUN/Creatinine Ratio 18.7; Bilirubin, Total 0.6 mg/dL (0.2-1.0); GFR African American 134 mL/min; GFR Non-African American 110 mL/min; Total Protein 8.1 g/dL (6.4-8.2)
== END | disposition home or self-care (01) ==
LOC: ER 09:40
DX: R07.89 Other chest pain (principal); J44.9 Chronic obstructive pulmonary disease, unspecified; E11.9 Type 2 diabetes mellitus without complications; K21.9 Gastro-esophageal reflux disease without esophagitis; E78.5 Hyperlipidemia, unspecified; I10 Essential (primary) hypertension; I25.2 Old myocardial infarction; Z98.61 Coronary angioplasty status; Z90.89 Acquired absence of other organs; Z79.899 Other long term (current) drug therapy
CPT/HCPCS: 36415; 71046; 80053; 83880; 84484; 85025; 93005